=== PATIENT | female | born 1940 | race Caucasian/White ===

== ENCOUNTER 2016-07-27 18:36 | Inpatient (IN) | payer OTHER ==
--- NOTE | ~2016-07-27 | CR72 ---
[facility] A Service of [facility] & [facility] RADIOLOGY TEXT RESULTS PATIENT: LENKA HERNÁNDEZ LOCATION: [place] [address] : 42 UNIT #: [id number] AGE: [address]: Graciela Mehta MD SEX: F ORDER DR: [id number] [facility] [address] [facility]. [place], [place] [address] [id number] I MR#: [id number] Acc #: [id number] NAME: LENKA HERNÁNDEZ : 1940 SEX: F STUDY DATE/TIME: 07/27/2016 19:27 UNIT: [facility] ROOM: [facility] STUDY DESCRIPTION: CR Chest Single View Portable Attending Physician: Weston Mabry M.D. Ordering Physician: Ed Doctor [id number] [facility] Primary Care Physician: Octavio Cedeño M.D. MEDICAL IMAGING REPORT This report is preliminary unless electronic signature is present EXAM Portable chest HISTORY Shortness of air. Cough and fever for 1 month. FINDINGS There is dense consolidation or atelectasis in the retrocardiac left lower lobe. There is a small left pleural effusion. Cardiac size and pulmonary vascularity are within normal limits. Mild hyperinflation of both lungs. Dictated by... Curt Kerr M.D. THIS IS AN ELECTRONICALLY VERIFIED REPORT Curt Kerr M.D. at 08/03/2016 2:02 PM DFL/rnr TD: 07/28/2016 00:37 JOB #: [id number] MEDICAL IMAGING REPORT Page 1 of 1 COPY
--- NOTE | ~2016-07-27 | CO ---
Unit #: [id number] #: [id number] Patient: LENKA HERNÁNDEZ [id number] [address] [place], [place] [address] [id number] I MR#: [id number] NAME: LENKA HERNÁNDEZ [place] Age: 76 Sex: F Admission Date: 07/27/2016 : 1940 Attending Physician: Weston Mabry M.D. Primary Care Physician: Octavio Cedeño M.D. Consultation Date: 07/28/2016 CONSULTATION REPORT HISTORY OF PRESENT ILLNESS Ms. Hernández is a 76-year-old female, who is on the fifth floor and was noted to have fever, tachycardia, hypoxia, and worsening leukocytosis. She was admitted to the hospital yesterday after a recent hospitalization at [facility], where she was discharged on 07/16/2016. At that time, she was admitted to [facility] for upper GI bleed and ended up undergoing exploratory laparotomy with some degree of partial gastrectomy, a distal pancreatectomy, and there is a note that it was found that she had non-Hodgkin lymphoma. She also has an underlying history of cirrhosis, autoimmune hemolytic anemia, diabetes, lupus, and uterine carcinoma. She currently is lethargic and has some probable sepsis-induced delirium and I cannot get any information from the patient, so the history is taken primarily from the chart and the nursing staff. PAST MEDICAL HISTORY Includes cirrhosis of the liver; newly diagnosed non-Hodgkin lymphoma; autoimmune hemolytic anemia; diabetes; hyperlipidemia; lupus; uterine cancer, status post hysterectomy; skin cancer, which was melanoma; upper GI bleed requiring exploratory laparotomy with hemigastrectomy; splenectomy; distal pancreatectomy; incisional hernia repair. PAST SURGICAL HISTORY She has had a right knee arthroplasty, hysterectomy, hernia repair, liver biopsy. ALLERGIES She has no documented allergies to medication. CURRENT MEDICATIONS Include melatonin, fenofibrate, MiraLAX, Nebs, Levemir, ProAmatine, NovoLog, Robitussin, Zofran, vancomycin, Zosyn, hydrocodone, bacitracin ointment, milk of magnesia, metronidazole. FAMILY HISTORY Unobtainable. SOCIAL HISTORY Long-term smoker. Denies use of alcohol. There was no family at the bedside. PHYSICAL EXAMINATION GENERAL: The patient is in her hospital room. She is lethargic and unable to give any useful information. VITAL SIGNS: Temperature is 99, pulse 133, respirations 24 and shallow, Unit #: [id number] #: [id number] Patient: LENKA HERNÁNDEZ blood pressure 160/61. HEENT: Unremarkable. CARDIAC: Tachy, but regular. LUNGS: Clear anteriorly, but shallow. ABDOMEN: She has a PEG in left upper quadrant. The stoma site looks good, but there was some mucus drainage. She has a midline wound that is intact with excellent granulation tissue. No evidence of any infection or breakdown. The fascia is intact. There is some teniae colonization around the wound on the skin. In the left upper quadrant, there is a Luca drain system that is passive into an ostomy bag with no significant drainage at this time. EXTREMITIES: Trace edema. DIAGNOSTIC STUDIES LABORATORY RESULTS: Sodium 124, potassium 3.3, chloride 88, CO2 of 24, BUN 29, creatinine 2.2, glucose 147, calcium 7.8, total bilirubin 1.0, lactic acid 1.2 and 1.0. Hemoglobin 9.8, white count 28,200, platelets 278,000. Differential is pending. ASSESSMENT PLAN A 76-year-old female as described with her change in mental status, tachycardia, hypoxia, and tachypnea with rising leukocytosis. I plan on doing a CT scan to rule out an intraabdominal abscess, leak, or phlegmon. She will be transferred to the ICU under the care of the program coordinator and we will continue to follow her there. CT scan with oral contrast has been ordered. Wound care has been ordered. We will request the recent surgical records and pathology report from [facility]. Dictated by... Romario Sommer M.D. EVITA/christine TD: 07/28/2016 23:25 JOB #: [id number] CONSULTATION REPORT Page 1 of 1 X Romario Sommer MD CONSULTATION REPORT
--- NOTE | ~2016-07-27 | CT55 ---
[facility] A Service of [facility] & [facility] RADIOLOGY TEXT RESULTS PATIENT: LENKA HERNÁNDEZ LOCATION: [address] 302-01 : 42 UNIT #: [id number] AGE: [address]: Graciela Mehta MD SEX: F ORDER DR: [id number] [facility] [address] [place], [place] [address] [id number] I MR#: [id number] Acc #: [id number] NAME: LENKA HERNÁNDEZ : 1940 SEX: F STUDY DATE/TIME: 08/01/2016 13:30 UNIT: [facility] ROOM: [facility] STUDY DESCRIPTION: CT Chest W Con Attending Physician: Graciela Mehta M.D. Ordering Physician: Calin Conner M.D. Primary Care Physician: Octavio Cedeño M.D. MEDICAL IMAGING REPORT This report is preliminary unless electronic signature is present EXAM CT chest with contrast 08/01/2016 1330 hours HISTORY 76-year-old woman with shortness of air and chest pain since 07/27/2016. History of bacteremia of unknown source. Recent abdominal surgery with drain in left upper quadrant. COMPARISON Chest CT 05/02/[address] abdomen and pelvis 07/28/2016. TECHNIQUE Dynamic helical CT images were obtained from the thoracic inlet through the adrenal glands. Sagittal and coronal reconstructions were performed. Contrast was Isovue-370 100 mL IV. Total exam DLP for the chest, abdomen and pelvis study today is 2397 mGy-cm. This CT examination was performed with one or more of the following radiation dose reduction techniques: automatic exposure control, adjustment of mA and/or kV according to patient size, and iterative reconstruction. FINDINGS Images through the thoracic inlet demonstrate enlarged heterogeneous right lobe of thyroid unchanged from 2006 consistent with benign goiter. There is a right IJ catheter with tip in the SVC just above the right atrium. There is no pathologic mediastinal, hilar or axillary adenopathy. Benign calcified nodes are stable. Pulmonary arteries and aorta are normal. Cardiac chambers and pericardium are normal. There is a left pleural effusion which is moderate in size slightly greater than the right pleural effusion. This is new from 2006 and slightly increased from CT abdomen 07/28/2016. There is a moderate right pleural effusion which is new from 05/02/2006 and new from 07/28/2006. [facility]. [facility] A Service of [facility] & [facility] RADIOLOGY TEXT RESULTS PATIENT: LENKA HERNÁNDEZ LOCATION: [facility] 302- : 42 UNIT #: [id number] AGE: [address]: Graciela Mehta MD SEX: F ORDER DR: There is mild underlying emphysematous change. There is ground-glass change in the right middle lobe likely atelectasis. There is dependent atelectasis at both lung bases adjacent to the pleural effusions unchanged on the left but new on the right. Please see report of CT abdomen and pelvis for findings below the hemidiaphragms. IMPRESSION 1. There is no adenopathy in the chest. 2. There is a moderately large left pleural effusion slightly increased from 07/28/2016 CT abdomen but new since chest CT 2006. 3. There is a moderate right pleural effusion which is new from 07/28/2016. There is bibasilar atelectasis but no definite evidence of pneumonia, edema or pulmonary nodule. 4. Please see CT abdomen report for findings below the hemidiaphragms. Dictated by... Laura Jay M.D. THIS IS AN ELECTRONICALLY VERIFIED REPORT Laura Jay M.D. at 08/02/2016 9:30 AM GABRIELA/ken TD: 08/01/2016 14:16 JOB #: [id number] MEDICAL IMAGING REPORT Page 1 of 1 COPY
--- NOTE | ~2016-07-27 | FU ---
[facility] Nutrition Therapy DATE: 08/07/16 Patient: LENKA HERNÁNDEZ Physician: JOHN Address: [address] [facility] Room/Bed: [address] [place] [address], Zip: [place] [id number] Admit Date: 07/27/16 Date of : 42 Height: 5 4 Weight: 229 104 NUTRITION MONITORING/FOLLOW-UP: Reason: Nutrition follow-up Admitting Dx: 76 y/o female admitted with PNA, fever Anthropometrics: Ht: 64", admission wt: 94.5 kg, current wt: 104 kg, BMI: 35.8 (Stage II obese; based on admission wt) Labs: Glucose 117, POC 119 (08/06), Creat 2.6, Phos 6.1 (08/06), GFR 17.5, Na/K WNL Meds: Reviewed GI: Last BM 08/06, PEG site abdomen Skin: No nutritionally significant issues, 2+ edema BLE Estimated Nutrition Needs: 3621-0175 kcals per day (20-25 kcals/kg admission wt) 113-142 g protein per day (1.2-1.5 g/kg admission wt) Fluids consistent with kcal needs or per MD Assessment: Chart reviewed, events noted. Patient is on 3L nasal cannula. Still with poor PO intake, currently on MS/NDD2/CC diet with chocolate Glucerna TID and sugar-free vanilla magic cup ordered BID. Patient ate none of her lunch today, only ~75% of her Glucerna shake, magic cup remains on tray untouched. Appetite remains inconsistent/poor, severe protein calorie malnutrition previously diagnosed by RD. She has been in and out of the ICU due to respiratory distress. Suggest utilizing PEG tube for nocturnal enteral feedings to meet nutritional needs. Glucose well controlled at this time, suggest to D/C CC restriction on diet order and continue ONS as desired. See nutritional goals, dx and recs as stated below. Has been accepted @ [facility], pending available bed. Will continue to follow. Dx: Severe protein calorie malnutrition r/t clinical condition, abdominal surgeries AEB prolonged poor oral intake and weight loss > 5% body weight in 1-2 months - ACTIVE Intervention: D/C CC restriction, suggesting nocturnal EN Monitoring, Evaluation and Goals: 1. PO intake > 50% of meals - NOT MET 2. ONS intake > 50% TID - IN PROGRESS 3. GI function WNL - IN PROGRESS 4. Labs WNL - IN PROGRESS (Creat and Phos elevated) [facility] Nutrition Therapy DATE: 08/07/16 Patient: LENKA HERNÁNDEZ Physician: JOHN Address: [address] [place] [address] Room/Bed: [address] [place] [address], Zip: [place] [address] Admit Date: 07/27/16 Date of : 42 Height: 5 4 Weight: 229 104 5. Skin WNL - MET Revised nutritional goals: 1. PO intake to meet ~50% of meals. 2. EN to meet 50% estimated nutrition needs. Monitor: Per protocol, criteria to determine if above goals met Recommendations: 1. Suggest discontinuing consistent carb restriction due to poor PO intake and well controlled blood glucose to liberalize food choices. Continue with mechanical soft/NDD2 restrictions per [employer]. 2. Continue oral nutrition supplements and encourage adequate intake. 3. Recommend utilizing PEG tube to help meet nutritional needs. Suggest running nocturnal feedings with Jevity 1.5 @ 60 ml x 12 hours (8p-8a) + 30 ml Prostat daily to meet approx. 50% of estimated nutrition needs (will provide 1180 kcals, 61 g protein and 547 ml water. 4. Please consult or call RD with further nutritional needs @ [phone]. Status: Mild-moderate nutrition risk Respectfully, Elvie Patrick, RD, LD Food and Nutritional Services [facility] cc: client file
--- NOTE | ~2016-07-27 | CT71 ---
[facility] A Service [facility] RADIOLOGY TEXT RESULTS PATIENT: LENKA HERNÁNDEZ LOCATION: [facility] 322-01 : 42 UNIT #: [id number] AGE: [address]: Graciela Mehta MD SEX: F ORDER DR: [id number] [place] [id number] [facility]. [place], [place] [address] [id number] I MR#: [id number] Acc #: [id number] NAME: LENKA HERNÁNDEZ : 1940 SEX: F STUDY DATE/TIME: 08/06/2016 12:13 UNIT: [address] ROOM: [facility] STUDY DESCRIPTION: CT Head Wo Contrast Attending Physician: Graciela Mehta M.D. Ordering Physician: Graciela Mehta M.D. Primary Care Physician: Octavio Cedeño M.D. MEDICAL IMAGING REPORT This report is preliminary unless electronic signature is present EXAM CT brain without contrast media 08/06/2016 HISTORY SUPPLIED Lethargy, new onset today, recent diagnosis of non Hodgkin lymphoma. TECHNIQUE Axial imaging of the brain was performed without contrast media. This CT exam was performed with one or more of the following radiation dose reduction techniques: automatic exposure control, adjustment of mA and/or kV according to patient size, and iterative reconstruction. FINDINGS There is generalized prominence of the ventricles and CSF containing spaces with degreased attenuation in the periventricular regions, primarily in the frontal regions. There are small vessel ischemic changes in the basal ganglia. No mass lesions, mass effect, acute hemorrhage or edema. No intra or extraaxial fluid collections are identified. Bone windows are reviewed. The patient has advanced erosive changes at the dens. The bone elements appear otherwise unremarkable. CONCLUSION 1. Atrophy. 2. Mild chronic small vessel deep white matter ischemic changes, primarily in the frontal regions. 3. Advanced arthritic changes at the C1-2 level. 4. No acute findings. Dictated by... Fernando Monet M.D. [facility] A Service [facility] RADIOLOGY TEXT RESULTS PATIENT: LENKA HERNÁNDEZ LOCATION: [facility] 322-01 : 42 UNIT #: [id number] AGE: [address]: Graciela Mehta MD SEX: F ORDER DR: THIS IS AN ELECTRONICALLY VERIFIED REPORT Fernando Monet M.D. at 08/07/2016 5:06 PM KELLY/romina TD: 08/06/2016 16:29 JOB #: [id number] MEDICAL IMAGING REPORT Page 1 of 1 COPY
--- NOTE | ~2016-07-27 | CR72 ---
[facility] A Service of [facility] & [facility] RADIOLOGY TEXT RESULTS PATIENT: LENKA HERNÁNDEZ LOCATION: [address] : 42 UNIT #: [id number] AGE: [address]: Weston Mabry MD SEX: F ORDER DR: [id number] [facility] [address] [facility]. [place], [place] [address] [id number] I MR#: [id number] Acc #: [id number] NAME: LENKA HERNÁNDEZ : 1940 SEX: F STUDY DATE/TIME: 07/28/2016 12:18 UNIT: [facility] ROOM: [facility] STUDY DESCRIPTION: CR Chest Single View Portable Attending Physician: Weston Mabry M.D. Ordering Physician: Ed Bubba Estrella M.D. Primary Care Physician: Octavio Cedeño M.D. MEDICAL IMAGING REPORT This report is preliminary unless electronic signature is present EXAM Portable chest INDICATIONS Central line placement. Comparison with yesterday. FINDINGS There is a new right IJ approach central venous catheter with tip projecting over the mid-SVC. No pneumothorax. There is persistent bibasilar atelectasis or infiltrate. IMPRESSION Right IJ central venous catheter tip projects over the mid SVC. No evidence for pneumothorax. Dictated by... Lacho Warren M.D. THIS IS AN ELECTRONICALLY VERIFIED REPORT Lacho Warren M.D. at 07/29/2016 3:48 PM ARS/rnr TD: 07/28/2016 23:17 JOB #: [id number] MEDICAL IMAGING REPORT Page 1 of 1 COPY
--- NOTE | ~2016-07-27 | FU ---
[facility] Nutrition Therapy DATE: 08/03/16 Patient: LENKA WONGSHANNA Physician: JOHN Address: [address] [facility] Room/Bed: [address], Zip: [place] [address] Admit Date: 07/27/16 Date of : 42 Height: 5 4 Weight: 232 105.5 NUTRITION MONITORING/FOLLOW-UP: Reason: PT SEEN FOR FOLLOW-UP DX: PNA, HYPONATREMIA, FEVER Anthropometrics: 5'4", WT: 232# (105 KG), BMI: 39.8 -ADMIT WEIGHT: 207# Labs: GLU: 127, CREAT: 1.7, CA+: 8.0, ALB: 2.2, AST: 75, M.1, GFR: 29.2 Meds: NACL, KCL, LEVEMIR, NOVOLOG, ZOFRAN I&O's: 1387/1610 Skin: ISSUES PREVIOUSLY NOTED Estimated Nutrition Needs: [phone] KCAL 113-142 G PRO Assessment: CHART REVIEWED AND EVENTS NOTED. PT SEEN FOR FOLLOW-UP. PT CURRENTLY NPO 2' RESPIRATORY DISTRESS NOTED LAST NIGHT. PLANS IN PLACE TO RESUME PREVIOUS DIET OF MECHANICAL SOFT + CC + NDD2. RD SPOKE TO PT. PT REPORTS "WANTING TO EAT". THIS RD ENCOURAGED SLOW GRADUAL PO INTAKE + SUPPLEMENT INTAKE, PT REQUESTS TO CONTINUE TO RECEIVING SUPPLEMENTS ORDERED BY PREVIOUS RD ON 07/28. (LC GLUCERNA TID + SUGAR-FREE MAGIC CUP BID). PT REPORTED NO DIET QUESTIONS AT THIS TIME. RD TO CONTINUE TO FOLLOW HOSPITAL COURSE. Dx: SEVERE PROTEIN CALORIE MALNUTRITION R/T CLINICAL CONDITION, ABDOMINAL SURGERIES AEB PROLONGED POOR ORAL INTAKE AND >5% WEIGHT LOSS NOTED IN 1-2 MONTHS.-ACTIVE Intervention: 1. PREVIOUS DIET RESUMED 2. LC GLUCERNA TID + SUGAR-FREE MAGIC CUP BID Monitoring, Evaluation and Goals: 1. PO INTAKE >50% OF MEALS-NOT MET 2. ONS INTAKE >50% TID-NOT MET 3. GI INTOLERANCE-IN PROGRESS 4. IMPROVEMENT IN LABS-IN PROGRESS 5. MAINTAIN WEIGHT STATUS/PRESERVE LBM-IN PROGRESS 6. PROMOTE WOUND HEALING-IN PROGRESS MONITOR: -PO INTAKE/APPETITE [facility] Nutrition Therapy DATE: 08/03/16 Patient: LENKA HERNÁNDEZ Physician: JOHN Address: [address] [facility] Room/Bed: [address], Zip: [place] [address] Admit Date: 07/27/16 Date of : 42 Height: 5 4 Weight: 232 105.5 -WEIGHTS -SUPPLEMENT INTAKE Recommendations: 1. ONCE MEDICALLY FEASIBLE, ADVANCE DIET BACK TO PREVIOUS DIET OF MECHANICAL SOFT + NDD2 + CC DIET 2. CONTINUE SUPPLEMENTS ORDERED ABOVE 3. APPRECIATE FAMILY AND STAFF TO ENCOURAGE PO AND SUPPLEMENT, ASSIST W/ORDERING MEALS TOLERATED 4. CONTINUE MVI W/MINERALS 5. CONTINUE TO WEIGH PT q 3 DAYS FOR MONITORING PURPOSES RD WILL F/U PER PROTOCOL PT IS MODERATELY COMPROMISED Respectfully, CRIS HARDIN MS, RD, LD Food and Nutritional Services [facility] cc: client file
--- NOTE | ~2016-07-27 | CO ---
Unit #: [id number] #: [id number] Patient: LENKA HERNÁNDEZ [id number] [facility]. [place], [place] [address] [id number] I MR#: [id number] NAME: LENKA HERNÁNDEZ ROOM: [facility] Age: 76 Sex: F Admission Date: 07/27/2016 : 1940 Attending Physician: Weston Mabry M.D. Primary Care Physician: Octavio Cedeño M.D. Consultation Date: 07/30/2016 CONSULTATION REPORT REASON FOR CONSULTATION Pseudomonas sepsis. HISTORY OF PRESENT ILLNESS This is a 76-year-old female who has a complex recent medical history, as well as past medical history. The patient is awake but appears to be somewhat of a poor historian, and chart has been reviewed and was also discussed with the staff. The patient had a recent long hospitalization at [facility], approximately 1 month, secondary to hematemesis status post extensive O.R., including partial gastrectomy, distal pancreatectomy and evacuation of developing phlegmon. Patient's pathology was also consistent with non-Hodgkin lymphoma. Patient had some complicated course, including pneumonia and urinary tract infection, but eventually was discharged to a rehab facility. Patient now returns to [facility] from the rehab facility with fever, tachycardia, hypoxia and worsening leukocytosis. Patient's workup did include gram-negative rods in her urine, as well as 2 of 2 positive blood cultures for Pseudomonas, resistant to multiple antibiotics. ID was asked to evaluate for further antibiotic management. Please note the patient also had some acute kidney insufficiency on admission. She still has a relatively elevated creatinine level, and she also recently had a CT scan done that did not show any abscess; however, this was done without contrast. The patient has recently been switched this a.m. to meropenem. PAST MEDICAL HISTORY 1. Cirrhosis of the liver. 2. Newly diagnosed non-Hodgkin lymphoma. 3. Autoimmune hemolytic anemia. 4. Diabetes. 5. Hyperlipidemia. 6. Lupus. 7. Uterine cancer. 8. Hysterectomy. 9. Skin cancer, melanoma. 10. Upper GI bleed status post extensive exploratory laparotomy with partial gastrectomy, splenectomy, distal pancreatectomy and incisional hernia repair and evacuation of phlegmon. PAST SURGICAL HISTORY As previously stated above. Also, including right knee arthroplasty, hysterectomy, hernia repair and liver biopsy. ALLERGIES No known allergies; however, the patient appears to have said that she was Unit #: [id number] #: [id number] Patient: LENKA HERNÁNDEZ allergic to sulfa to me during my exam. CURRENT MEDICATIONS The patient is currently on meropenem. For other medications, please refer to the patient's MAR. She is also noted to be on a Levophed drip. SOCIAL HISTORY The patient does have past tobacco abuse. No alcohol abuse. REVIEW OF SYSTEMS Difficult to obtain, as the patient's voice appears rather hoarse and have asked her to repeatedly repeat her history. Patient does report that she did have some fever and chills that are ongoing. She denies any shortness of breath. She denies any nausea, vomiting. She does have diarrhea. She denies any abdominal pain. She denies any metal or hardware besides in her total knee arthroplasty on the right side without pain. She does report arthritis in the left knee. PHYSICAL EXAMINATION VITAL SIGNS: Temperature 97.6 with a T max this admission of 100.1. Pulse is 87, blood pressure is 96/64, and respiratory rate is 30. GENERAL: This is a weak and hoarse-sounding female. HEENT: Her pupils are sluggish. NECK: Her neck is supple. CARDIOVASCULAR: S1, S2. Regular rate and rhythm. PULMONARY: Diminished in the bases with no significant wheezes or rhonchi noted. ABDOMEN: Decreased bowel sounds. She does have an abdominal incision that has some packing with no surrounding cellulitis around the incision. She appears to have a left upper quadrant [place] drain that has some purulent drainage. She has a G-tube with some drainage around the G-tube site with no evidence of cellulitis. She has a fecal management system in place without any rust colored appearing stool. It does appear brown. She has trace edema. She has an IJ line in place. DIAGNOSTIC STUDIES LABS: Hemoglobin 9, hematocrit 31, WBC 22,000 (which is improved from 28,000), and platelets 337. Sodium 130, potassium 3.7, chloride 99, CO2 22, BUN 17, creatinine 1.1 (which is improved from 2.2), bilirubin 1.2, AST 22, ALT 9. Lactic acid was 1. Urinalysis shows innumerable WBCs. July 30 blood culture is pending. C. diff. is negative. July 28 respiratory culture is negative. July 27 blood culture shows Pseudomonas. Intermediate to cefepime and resistant to Levaquin and gentamicin. Urine culture shows gram-negative rods. IMAGING: CT scan. Please see full report for complete details. In summary - Patient has mild left periaortic adenopathy measuring up to 1.6 cm, questionably related to lymphoma. No adenopathy is identified in the remainder of the abdomen and pelvis. Yvre-kx-ynzyjosx stranding in the celiac axis and the remaining pancreas and upper abdominal mesenteric fat. Partial gastrectomy, splenectomy and resection of the pancreatic tail. Cholecystectomy and hysterectomy. Changes of cirrhosis. Mild bilateral hydronephrosis but no obstructing renal calculi. Small left pleural effusion with extensive atelectasis in left lower lobe, as well as the right lower lobe. IMPRESSION This is a 76-year-old female who was at a rehab facility after extensive Unit #: [id number] #: [id number] Patient: EDGARJOSETTEZOE stay at [facility] after an extensive exploratory laparotomy requiring gastrectomy, splenectomy and evacuation of left upper quadrant phlegmon. Patient was also diagnosed with non-Hodgkin lymphoma. Patient now returns with sepsis presentation, including low-grade fever, leukocytosis and acute renal failure. Found to have Pseudomonas sepsis. At this time, possibilities include abdominal source. Patient's CT scan does not show any clear abscess; however, this was done without contrast secondary to the patient's elevated creatinine. Patient does appear to have some purulent fluid coming from her Luca drain in her left upper quadrant; however, culturing this could yield some surface contamination. Other sources include urine, as the patient does appear to have a UTI and gram-negative rods in the urine culture. Patient did have mild stranding of the bilateral ureters on the CT scan, as well, but no obstruction was noted. Patient also has continued leukocytosis. Part of this is likely related to patient's recent splenectomy; however, do suspect that it is elevated due to her ongoing sepsis. At this time would like to continue meropenem. Patient will require a second agent due to Pseudomonas being detected in the bloodstream. Due to patient's sensitivities noted on the blood cultures, would like to add colistin, and I have discussed with microbiology to check sensitivities of both meropenem and colistin. Patient will likely or possibly develop some worsening acute renal insufficiency due to the use of colistin; however, with limited sensitivities on the Pseudomonas, this will be difficult. This was discussed with Dr. Calin Conner prior to adding colistin to patient's regimen. Will continue to follow the ID of the gram-negative rods in the urine, as well as repeat blood cultures. Will check a CBC and CMP in the a.m. Patient, if continues to have bacteremia, may require repeat CT scan with contrast if she is able to tolerate it with her kidney function. Thank you for allowing us to participate in the care of this patient. Further recommendations to follow pending the patient's clinical course. Please note that I have discussed with microbiology at [facility], and there was no Pseudomonas detected during her length of stay during that hospitalization. Dictated by... Antonette Gilliam/john TD: 07/30/2016 11:47 JOB #: [id number] CONSULTATION REPORT Page 1 of 1 X X CONSULTATION REPORT
--- NOTE | ~2016-07-27 | CT2 ---
[facility] A Service of [facility] & [facility] RADIOLOGY TEXT RESULTS PATIENT: LENKA HERNÁNDEZ LOCATION: A 302-01 : 42 UNIT #: [id number] AGE: [address]: Graciela Mehta MD SEX: F ORDER DR: [id number] [facility] [address] [place], [place] [address] [id number] I MR#: [id number] Acc #: [id number] NAME: LENKA HERNÁNDEZ : 1940 SEX: F STUDY DATE/TIME: 08/01/2016 13:30 UNIT: [facility] ROOM: [facility] STUDY DESCRIPTION: CT Abd and Pelv W Cont Attending Physician: Graciela Mehta M.D. Ordering Physician: Calin Conner M.D. Primary Care Physician: Octavio Cedeño M.D. MEDICAL IMAGING REPORT This report is preliminary unless electronic signature is present EXAM CT abdomen pelvis with contrast, 08/01/2016 13:30 hours HISTORY 76-year-old woman with pneumonia, bacteremia of unknown source. Recent abdominal surgery with left upper quadrant drain. Patient complains of abdominal pain, chest pain and shortness of air since 07/27/2016. COMPARISON CT abdomen, 07/28/[address] images were obtained from the lung bases through the pubic symphysis with oral and intravenous contrast. Isovue-370 100 mL IV. Total exam DLP for the chest, abdomen and pelvis study is 2,397 mGy-cm. This CT exam was performed with one or more of the following radiation dose reduction techniques: automatic exposure control, adjustment of mA and/or kV according to patient size, and iterative reconstruction. FINDINGS There are bilateral moderate-sized pleural effusions slightly increased on the left and new on the right compared to 07/28/2016. There is bibasilar atelectasis. Images through the abdomen demonstrate a homogeneously enhancing liver with cirrhotic morphology, unchanged. There is a gastrostomy tube in the stomach which is well apposed to the anterior abdominal wall and unchanged. There is postop change of partial gastrectomy and distal pancreatectomy and splenectomy. There is fluid in the left upper quadrant without definite abscess or enhancement. There is mild linear stranding around the tail of the pancreas similar to prior exam. The head and body [facility]. [facility] A Service of [facility] RADIOLOGY TEXT RESULTS PATIENT: LENKA HERNÁNDEZ LOCATION: C3A 302-01 : 42 UNIT #: [id number] AGE: [address]: Graciela Mehta MD SEX: F ORDER DR: of the pancreas and the common bile duct are normal. There are small periaortic lymph nodes again demonstrated felt unchanged but better visualized on this exam due to the presence of IV contrast on this exam. Example node measures 1.8 x 1.5 cm along the left anterior margin of the upper abdominal aorta on image 36. There is no renal lesion. No right adrenal lesion. The left adrenal is difficult to assess and may be surgically absent. The stomach is unopacified but fluid-filled. No gastric wall thickening is seen. There is no wall thickening seen in the small bowel. There is no distension. Contrast passes into the colon. No colonic wall thickening is seen. CT pelvis demonstrates a Rowley catheter in the bladder. There is no mass or fluid collection. No abscess. There is edema in the flanks left and right and dependently over the buttocks suggesting an element of anasarca increased from 07/28/2016. IMPRESSION 1. Increase in size of left pleural effusion with new moderate pleural effusion. There is bibasilar atelectasis. Findings are compared to recent CT abdomen 07/28/2016. 2. Postoperative changes in the left upper quadrant with partial gastrectomy, distal pancreatectomy and splenectomy. There is linear stranding adjacent to the tail of the pancreas without definite fluid collection or nodule. 3. There is stable small retroperitoneal lymph nodes around the aorta at the level of the renal artery and inferior to the renal arteries similar in size to 07/28/2016. These are increased from 2007. They are better visualized on today's study due to the presence of IV contrast on this exam. 4. Cirrhotic morphology to the liver with no focal liver lesion. The right adrenal gland is normal. I cannot discriminate a left adrenal gland. 5. No renal or ureteral calculi. 6. The stomach, small bowel and colon appear normal. There is an ostomy in the left lower quadrant. 7. There is a partially open midline surgical wound with no evidence of dehiscence or ventral hernia. Dictated by... Laura Jay M.D. THIS IS AN ELECTRONICALLY VERIFIED REPORT Laura Jay M.D. at 08/02/2016 9:30 AM GABRIELA/belkis TD: 08/01/2016 14:20 JOB #: [id number] [facility] A Service of [facility] RADIOLOGY TEXT RESULTS PATIENT: LENKA HERNÁNDEZ LOCATION: A 302-01 : 42 UNIT #: [id number] AGE: [address]: Graciela Mehta MD SEX: F ORDER DR: MEDICAL IMAGING REPORT Page 1 of 1 COPY
--- NOTE | ~2016-07-27 | CR72 ---
[facility] A Service of [facility] & [facility] RADIOLOGY TEXT RESULTS PATIENT: LENKA HERNÁNDEZ LOCATION: [address] : 42 UNIT #: [id number] AGE: [address]: Weston Mabry MD SEX: F ORDER DR: [id number] [facility] [address] [place], [place] [address] [id number] I MR#: [id number] Acc #: [id number] NAME: LENKA HERNÁNDEZ : 1940 SEX: F STUDY DATE/TIME: 07/30/2016318 UNIT: [facility] ROOM: [facility] STUDY DESCRIPTION: CR Chest Single View Portable Attending Physician: Weston Mabry M.D. Ordering Physician: Felice Barlow M.D. Primary Care Physician: Octavio Cedeño M.D. MEDICAL IMAGING REPORT This report is preliminary unless electronic signature is present EXAM Portable chest, 07/30 at 0319. INDICATION Shortness of air, cough, congestion, and fever for 3 days. FINDINGS AP portable chest compared with 07/28/2016. IJ line in the SVC. Heart size stable. There is increasing infiltrate left jiz-xq-ukuag lung and there is enlarging left effusion. There is also increased infiltrate at the right base. Findings are worrisome for pneumonia. No pneumothorax. Dictated by... Romario Ortega Jr., M.D. THIS IS AN ELECTRONICALLY VERIFIED REPORT Romario Ortega Jr., M.D. at 07/30/2016 5:19 PM IMAN/delonte TD: 07/30/2016 10:51 JOB #: [id number] MEDICAL IMAGING REPORT Page 1 of 1 COPY
--- NOTE | ~2016-07-27 | CR72 ---
[facility] A Service of [facility] & [facility] RADIOLOGY TEXT RESULTS PATIENT: LENKA HERNÁNDEZ LOCATION: [facility] 322-01 : 42 UNIT #: [id number] AGE: [address]: Graciela Mehta MD SEX: F ORDER DR: [id number] [facility] [address] [place], [place] [address] [id number] I MR#: [id number] Acc #: [id number] NAME: LENKA HERNÁNDEZ : 1940 SEX: F STUDY DATE/TIME: 08/05/2016 5:16 UNIT: [facility] ROOM: [facility] STUDY DESCRIPTION: CR Chest Single View Portable Attending Physician: Graciela Mehta M.D. Ordering Physician: Felice Barlow M.D. Primary Care Physician: Octavio Cedeño M.D. MEDICAL IMAGING REPORT This report is preliminary unless electronic signature is present EXAM Portable chest, 08/05/2016. HISTORY Fever and shortness of breath for 9 days. COMPARISON Chest, 08/04/2016. FINDINGS Frontal chest demonstrates a right IJ central venous catheter in stable position. No pneumothorax. No change in bibasilar atelectasis/infiltrate and small bilateral pleural effusions. Heart size and mediastinum are stable. IMPRESSION No significant change in small bilateral pleural effusions and bibasilar atelectasis/infiltrate. Dictated by... Minesh Clinton M.D. THIS IS AN ELECTRONICALLY VERIFIED REPORT Minesh Clinton M.D. at 08/06/2016 8:52 AM SARITHA/delonte TD: 08/05/2016 07:27 JOB #: [id number] MEDICAL IMAGING REPORT Page 1 of 1 COPY
--- NOTE | ~2016-07-27 | CR72 ---
[facility] A Service of [facility] & [facility] RADIOLOGY TEXT RESULTS PATIENT: LENKA HERNÁNDEZ LOCATION: [facility] 302- : 42 UNIT #: [id number] AGE: [address]: Graciela Mehta MD SEX: F ORDER DR: [id number] [facility] [address] [place], [place] [address] [id number] I MR#: [id number] Acc #: [id number] NAME: LENKA HERNÁNDEZ : 1940 SEX: F STUDY DATE/TIME: 08/02/2016 16:26 UNIT: [address] ROOM: [facility] STUDY DESCRIPTION: CR Chest Single View Portable Attending Physician: Graciela Mehta M.D. Ordering Physician: Graciela Mehta M.D. Primary Care Physician: Octavio Cedeño M.D. MEDICAL IMAGING REPORT This report is preliminary unless electronic signature is present EXAM Single view chest 08/02/2016 INDICATION Hypoxia and pneumonia. FINDINGS Single portable AP view of the chest compared to 07/30/[address] chest dated 07/30/2016. Right IJ central line terminates over the SVC. The heart and mediastinal contours are unchanged. Moderate interstitial edema and bilateral pleural effusions are similar to the CT scan. No pneumothorax. IMPRESSION No interval change. Dictated by... Zen Alba M.D. THIS IS AN ELECTRONICALLY VERIFIED REPORT Zen Alba M.D. at 08/02/2016 5:55 PM GRICELDA/romina TD: 08/02/2016 17:47 JOB #: [id number] MEDICAL IMAGING REPORT Page 1 of 1 COPY
--- NOTE | ~2016-07-27 | EKG ---
PATIENT: LENKA HERNÁNDEZ UNIT #: [id number] Ventricular Rate: 134 BPM Atrial Rate: 111 BPM QRS Duration: 82 ms Q-T Interval: 366 ms QTC Calculation(Bezet): 546 ms Calculated R Belcher: 36 degrees Calculated T Belcher: 37 degrees Diagnosis Line: Atrial fibrillation with rapid ventricular Diagnosis Line: response Diagnosis Line: Low voltage QRS Diagnosis Line: Nonspecific T wave abnormality , probably Diagnosis Line: digitalis effect Diagnosis Line: Abnormal ECG Diagnosis Line: No previous ECGs available Diagnosis Line: Confirmed by SANDI DEL ANGEL MD ([id number]) on 07/30/2016 Diagnosis Line: 5:44:09 AM INTERPRETING MD: MER FOOTE
--- NOTE | ~2016-07-27 | A ---
[facility] Therapy DATE: 07/28/16 Patient: LENKA HERNÁNDEZ Physician: JOHN Address: [address] Room/Bed: [address], Zip: [place] [address] Admit Date: 07/27/16 Date of : 42 Height: 5 4 Weight: 208 94.5 NUTRITIONAL ASSESSMENT: REASON: 2 points nutrition screen risk RE: wound and eating poorly 76 yo female admitted for PNA, fever PMH: Non-hodgkins lymphoma, DM, cirrhosis, lupus, dyslipidemia, uterine cancer s/p hysterectomy, skin cancer with previous excision, autoimmune hemolytic anemia, s/p (recent) exploratory laparatomy with: vertical leonardo-gastrectomy, slenectomy, distal pancreectomy, hernia repair Anthropometrics: Ht: 64" Adm wt: 94.5 kg BMI: 35.8 Labs: Na+ 124 K+ 3.3 Cl- 88 Gluc 147 BUN 29 Creat 2.2 Ca++ 7.8 Alb 2.4 Accuchecks 141-191 GFR 21.4 Alk phos 111 Meds: D5%. levophed, miralax, levemir, novolog, zofran, MOM, KCl, therapeutic formula I/O & Bowel function: 780/2, last BM 07/28, ostomy, diarrhea noted Skin Integrity: Redness to coccyx Open surgical incision to abdomen Excoriation to skin folds G Tube insertion site (infected) Edema: LLE/ foot/ ankle 2+/pitting RLE/ foot/ ankle- trace Body- generalized Estimated Nutrition Needs: Increased due to recent surgery, open surgical incision, PMH 0325-3339 kcals (20-25 kcals/kg ABW) 113-142 grams protein (1.2-1.5 grams/kg ABW) Diet: NPO Assessment: Chart reviewed, events noted. 76 yo female admitted for PNA, fever, NORA and hyponatremia. Pt was initially admitted to 5th floor, now in ICU. Pt previously had complicated abdominal surgery (with partial pancreectomy and leonardo-gastrectomy) at an outside hospital ([facility]), then transfered to [facility] for rehab. Pt has a PEG, which was placed at her previous hospitalization post-surgery. PEG site noted to be infected. Pt was ordered a consistent carbohydrate diet upon admission here, and is now NPO in ICU. HUMAN RESOURCES DISTRICT MANAGER evaluated the pt, and recommended mechanical soft diet with ground meats, NDD2 and thin [facility] Therapy DATE: 07/28/16 Patient: LENKA HERNÁNDEZ Physician: JOHN Address: [address] Room/Bed: [address], Zip: [place] [address] Admit Date: 07/27/16 Date of : 42 Height: 5 4 Weight: 208 94.5 liquids. Per information in chart, the pt was on a soft diet with thin liquids at [facility], with multiple supplements ordered. RD spoke with the pt and her daughter at bedside, as the pt was in and out of sleep. Pt's daughter reports that the pt's intake was poor with 3-4 bites per meal at [facility]. Pt's daughter does report that the pt's appetite seemed to be improving before transfer to [facility], as the pt would request different foods. Pt would apparently only consume supplements when someone sat with her and encouraged it during meal times. Pt's family reports that the pt has lost ~35# since admission to [facility] on 06/16/16 (14% weight loss over 1.5 months = severe weight loss). Pt's family also reports that the pt was receiving TPN at [facility], which was discontinued. RD explained nutrition options to the family, and explained that diet advancement would be pending surgical team decision. Please see recommendations below. Dx: Severe protein-calorie malnutrition RT clinical condition, abdominal surgery AEB prolonged poor intake prior to admission (<50% estimated energy needs), >5% weight loss in 1.5 months (14% weight loss). Intervention: 1. Advance diet per HUMAN RESOURCES DISTRICT MANAGER/ surgical team 2. EN if appropriate Monitoring, Evaluation and Goals: 1. Oral intake; advance diet as appropriate per HUMAN RESOURCES DISTRICT MANAGER/ surgical team, tolerate PO intake without c/o GI intolerance 2. Improve labs; electrolytes, glucose, BUN, creat, GFR 3. Weight; prevent unintentional weight loss, preserve lean body mass 4. Skin; promote healing Recommendations: 1. As deemed appropriate per surgical team, advance the pt's diet per HUMAN RESOURCES DISTRICT MANAGER recommendations + consistent carbohydrate/ high protein. 2. If pt's diet advanced per HUMAN RESOURCES DISTRICT MANAGER recommendations, please assist the pt with meals and order the following for supplemental nutrition/ wound healing: -Marcelino BID -Chocolate Glucerna TID -Magic Cup (sugar free) BID 3. Continue MVI + minerals to promote wound healing. [facility] DATE: 07/28/16 Patient: LENKA HERNÁNDEZ Physician: JOHN Address: [address] [place] [address] Room/Bed: [address], Zip: [place] [address] Admit Date: 07/27/16 Date of : 42 Height: 5 4 Weight: 208 94.5 4. If the pt's diet is not advanced, or the pt does not consume at least 50% of meals and supplements, consider initiating enteral nutrition for supplemental nutrition if deemed appropriate per surgical team (infected PEG site noted). If enteral nutrition is ordered, recommend: -Initiate Vital 1.5 @ 15 mL/hr + 30 mL Prostat BID. Advance by 10 mL q 12 hrs as tolerated to goal of 55 mL/hr + 30 mL Prostat BID to provide: 2180 kcals/ 119 grams protein/ 1003 mL free H20 PLEASE NOTE: The above regimen will meet 100% of the pt's estimated nutrient needs. If the pt's diet is advanced and intake is poor, supplemental/ nocturnal enteral nutrition may be appropriate. RD will follow closely and make recommendations as appropriate. Pt is at severe nutritional risk. RD will follow hospital course closely. Respectfully, SERAFIN FLORES RD, LD [employer] and Nutrition[facility] Services [facility] cc: client file
--- NOTE | ~2016-07-27 | EKG ---
PATIENT: LENKA HERNÁNDEZ UNIT #: [id number] Ventricular Rate: 73 BPM Atrial Rate: 73 BPM P-R Interval: 150 ms QRS Duration: 80 ms Q-T Interval: 400 ms QTC Calculation(Bezet): 440 ms P Rayle: 28 degrees Calculated R Rayle: 59 degrees Calculated T Rayle: 69 degrees Diagnosis Line: Sinus rhythm with Premature atrial complexes Diagnosis Line: Low voltage QRS Diagnosis Line: Borderline ECG Diagnosis Line: When compared with ECG of 29-JUL-2016 05:23, Diagnosis Line: Sinus rhythm has replaced Atrial fibrillation Diagnosis Line: Vent. rate has decreased BY 61 BPM Diagnosis Line: Confirmed by PHI EISENBERG MD ([id number]) on Diagnosis Line: 08/04/2016 4:32:02 PM INTERPRETING MD: FAINA FOOTE
--- NOTE | ~2016-07-27 | XA203 ---
[facility] A Service of [facility] RADIOLOGY TEXT RESULTS PATIENT: LENKA HERNÁNDEZ [facility] UNIT #: [id number] AGE: [address]: Graciela Mehta MD SEX: F ORDER DR: [id number] [facility] [address] [facility]. [place], [place] [address] [id number] I MR#: [id number] #: [id number] NAME: LENKA HERNÁNDEZ : 1940 SEX: F STUDY DATE/TIME: 07/30/2016 12:49 UNIT: [facility] ROOM: [facility] STUDY DESCRIPTION: XA Thoracentesis Attending Physician: Graciela Mehta M.D. Ordering Physician: Felice Barlow M.D. Primary Care Physician: Octavio Cedeño M.D. MEDICAL IMAGING REPORT This report is preliminary unless electronic signature is present EXAM Ultrasound guided thoracentesis HISTORY Left pleural effusion. PROCEDURE Risks, benefits, and alternatives of the procedure were explained to the patient and signed, informed consent was obtained. She was seated in the upright position and preliminary ultrasound of left hemithorax was performed which demonstrated a large left pleural effusion with images permanently saved. Overlying skin was marked. Patient was prepped and draped in the usual sterile fashion. Timeout was performed as per standard protocol. Skin and subcutaneous tissues were anesthetized with buffered lidocaine. Yueh catheter was advanced in the fluid with aspiration of serous material, catheter was hooked to suction tubing with evacuation of total 900 mL of serous material. Catheter was then removed and manual pressure was applied until hemostasis was obtained. IMPRESSION Technically successful ultrasound guided left thoracentesis with evacuation of 900 mL serous material. Ultrasound was used during the procedure. Permanent images were saved. Dictated by... Dominique Barros M.D. [facility] A Service of [facility] & [facility] RADIOLOGY TEXT RESULTS PATIENT: LENKA HERNÁNDEZ [facility] UNIT #: [id number] AGE: [address]: Graciela Mehta MD SEX: F ORDER DR: THIS IS AN ELECTRONICALLY VERIFIED REPORT Dominique Barros M.D. at 07/31/2016 4:43 PM AFF/dj TD: 07/31/2016 09:42 JOB #: [id number] MEDICAL IMAGING REPORT Page 1 of 1 COPY
--- NOTE | ~2016-07-27 | HP ---
Unit #: [id number] #: [id number] Patient: LENKA HERNÁNDEZ [id number] [place], [place] [address] [id number] E MR#: [id number] NAME: LENKA HERNÁNDEZ ROOM: Age: 76 Sex: F Admission Date: 07/27/2016 : 1940 Attending Physician: Romario Marcelino M.D. Primary Care Physician: Octavio Cedeño M.D. HISTORY AND PHYSICAL CHIEF COMPLAINT Fever, tachycardia, hypoxia. HISTORY OF PRESENT ILLNESS This is a 76-year-old female who has a history of cirrhosis, autoimmune hemolytic anemia, diabetes, lupus, uterine cancer with previous hysterectomy, skin cancer with previous excision, arthritis. She was recently admitted in the [facility] from 06/16/2016 and discharged on 07/16/2016. In the emergency room, she presented with chief complaint of having upper GI bleed. She underwent initially EGD which shows large area in clot on the gastric side of the gastroesophageal junction. Proximal stomach was full of blood. Multiple large mucosal tears were seen proximally with distention of stomach initially, then eventually she underwent operating room with exploratory laparotomy. She was found to have mass on the pancreas and she underwent vertical hemigastrectomy, splenectomy, distal pancreectomy, resection of left upper quadrant phlegmon, repair of the incisional hernia, liver biopsy. The pathology shows positive for non-Hodgkin lymphoma. She was in the ICU, she was on the vent, eventually she had a slow process. She was extubated. She required again intubation secondary to respiratory failure but eventually she was stabilized. She had a bronchoscopy also which showed mucous plugging. She had the abdominal wound with a wound VAC and she was eventually placed in the half-way, [facility] from 07/16/2016. As per family who is at the bedside, she has been eating now and she was found to be in the half-way today hypoxic. Oxygen saturation was 86%. She has a fever and tachycardic and she was sent to the emergency room for further workup and evaluation. She was found to have sodium 121; white count 21,000. Chest x-ray shows retrocardiac left lower lobe infiltrate. Eventually she was admitted. She is telling me she had been having some cough. She is a rather poor historian but she is alert, oriented times 3. She denies chest pain. She denies nausea or vomiting. Her daughter and family is also at her bedside. PAST MEDICAL HISTORY 1. History of cirrhosis with recent liver biopsy. 2. History of non-Hodgkin lymphoma recently diagnosed. 3. Autoimmune hemolytic anemia. 4. Diabetes. 5. Dyslipidemia. 6. History of lupus. 7. History of uterine cancer with hysterectomy. 8. Skin cancer, status post excision, melanoma. 9. Recent GI bleed in June 2016. She underwent exploratory laparotomy Unit #: [id number] #: [id number] Patient: LENKA HERNÁNDEZ with vertical hemigastrectomy/splenectomy/distal pancreectomy/repair of recurrent incisional hernia. PAST SURGICAL HISTORY 1. History of right total knee arthroplasty. 2. Hysterectomy. 3. Melanoma excision. 4. History of ventral/incisional hernia. 5. Recent history of liver biopsy in June 2016. 6. History of exploratory laparotomy with vertical gastrectomy, splenectomy, distal pancreectomy and repair of incision hernia in June 2016. GROUP HOME MEDICATIONS 1. Midodrine 2.5 mg one tablet t.i.d. for hypotension. 2. Metronidazole 500 mg t.i.d. 3. Zofran ODT 4. MiraLAX. 5. Fenofibrate mg for dyslipidemia. 6. Multivitamin one tablet daily. 7. Lasix 40 mg daily. 8. Cipro 250 b.i.d. for 14 days. 9. Melatonin nighttime. 10. Milk of magnesia. 11. Hydrocodone 5/325 q.6 h. p.r.n. 12. NovoLog sliding scale. 13. Lantus 10 units subcu q.a.m. SOCIAL HISTORY She used to smoke 1-1/2 to 2 packs daily for many years, she just quit recently two months ago during the hospitalization. She denies alcohol, she denies illicit drug use. FAMILY HISTORY Noncontributory to current case. REVIEW OF SYSTEMS Negative except for history of presenting illness. PHYSICAL EXAMINATION VITAL SIGNS: Temperature 98.4, heart rate 117, respiratory rate 27, blood pressure 122/107, oxygen saturation 92%. GENERAL: Elderly female lying in the bed, comfortably, currently not in any distress. She is alert, awake, oriented x3. HEENT: Pupils are equal and reactive to light and accommodation. Head is normocephalic, atraumatic. NECK: Supple. No JVD. LUNGS: Clear to auscultation. No rhonchi, no wheezing. HEART: S1, S2. Regular rate and rhythm. Tachycardia. ABDOMEN: Positive G-tube. Slight yellowish discharge around the G-tube site. In the midline central area, there is positive open wounds. EXTREMITIES: Normal. No cyanosis, clubbing, or edema. NEUROLOGIC: Alert, oriented x4. Sensation is intact. She is moving all extremities. DIAGNOSTIC STUDIES LABORATORY: Sodium 121, potassium 3.6, chloride 82, glucose 156, BUN 29, creatinine 2.1. CBC white count 21,000, hemoglobin 10, hematocrit 33, Unit #: [id number] #: [id number] Patient: LENKA HERNÁNDEZ platelets 438. Lactic acid level 1.2. Troponin less than 0.05. IMAGING: Chest x-ray shows retrocardiac left lower lobe infiltrate. ASSESSMENT AND PLAN 1. Pneumonia, possible aspiration. Will start the patient on Zosyn and vancomycin. Most likely healthcare-associated pneumonia. 2. Hyponatremia. 3. Acute kidney injury. Normal BUN and creatinine on discharge from the [facility]. Will give some IV fluid and monitor closely. 4. Leukocytosis. 5. History of recent exploratory laparotomy with vertical hemigastrectomy, splenectomy, distal pancreectomy, and repair of incisional hernia. 6. Recently diagnosed non-Hodgkin lymphoma. 7. Recently diagnosed cirrhosis with liver biopsy. 8. History of autoimmune hemolytic anemia. 9. Diabetes. Continue Lantus, place on sliding scale. 10. History of lupus. 11. History of uterine cancer with previous hysterectomy. 12. History of skin cancer, melanoma. 13. Dyslipidemia. 14. DVT prophylaxis. Place the patient on Lovenox. Dictated by Ashley Avery TD: 07/27/2016 21:59 JOB #: [id number] HISTORY AND PHYSICAL Page 1 of 1 X X HISTORY AND PHYSICAL
--- NOTE | ~2016-07-27 | CO ---
Unit #: [id number] #: [id number] Patient: LENKA HERNÁNDEZ [id number] [place], [place] [address] [id number] I MR#: [id number] NAME: LENKA HERNÁNDEZ ROOM: [facility] Age: 76 Sex: F Admission Date: 07/27/2016 : 1940 Attending Physician: Weston Mabry M.D. Primary Care Physician: Octavio Cedeño M.D. CONSULTATION REPORT CHIEF COMPLAINT Fever and hypoxia. HISTORY OF PRESENT ILLNESS 76-year-old female presented with a past medical history of cirrhosis, autoimmune hemolytic anemia, diabetes mellitus, lupus, uterine cancer, previous history of hysterectomy, skin cancer, who recently was discharged from [facility]. Presented with a complaint of fever. She was admitted at [facility], underwent exploratory laparotomy and extensive surgical procedure having gastrectomy, splenectomy and distal pancreatectomy and resection of the left upper quadrant phlegmon and repair of the incisional hernia and liver biopsy. Pathology positive for non-Hodgkin lymphoma. I am seeing the patient at bedside. Appears to be very lethargic, unable to answer questions, protecting airway very well with a low blood pressure. REVIEW OF SYSTEMS Unobtainable. PAST MEDICAL HISTORY As described above. PAST SURGICAL HISTORY As described above. MEDICATION Medication as per MAR has been reviewed. SOCIAL HISTORY Half pack smoker per day. No alcohol or drug abuse as per history. PHYSICAL EXAMINATION VITAL SIGNS: Temperature 98, pulse 100, respirations 16, blood pressure is 100/60. NEUROLOGICAL: She is lethargic. CVS: S1+ S2. RESPIRATION: Bilateral air entry, bilateral mild rhonchi. GI: Nontender, soft. Bowel sounds positive. Positive ascites. EXTREMITIES: Positive edema. DIAGNOSTIC STUDIES Labs and imaging have been reviewed. Unit #: [id number] #: [id number] Patient: LENKA HERNÁNDEZ ASSESSMENT AND PLAN 1. Sepsis. 2. Hypertension. 3. Hyponatremia. 4. Acute kidney injury. 5. Pneumonia, likely on the chest x-ray. 6. Leukocytosis. 7. History of recently diagnosed non-Hodgkin lymphoma. 8. Extensive recent abdominal surgery. 9. Immunocompromised patient. 10. Status post splenectomy. At this point, plan is to add patient on broad spectrum IV antibiotic and start her on IV pressors, monitor BUN and creatinine, monitor labs. GI and DVT prophylaxis. Will continue to aggressive monitor in Intensive Care Unit. Will follow cultures. Please see orders for detailed plan. Thank you very much for this consultation. Dictated by... Ashley Gibbs TD: 07/29/2016 10:59 JOB #: [id number] CONSULTATION REPORT Page 1 of 1 X Felice aBrlow MD X CONSULTATION REPORT
--- NOTE | ~2016-07-27 | CO ---
Unit #: [id number] #: [id number] Patient: LENKA HERNÁNDEZ [id number] [place], [place] [address] [id number] MR#: [id number] NAME: LENKA HERNÁNDEZ ROOM: 322 Age: 76 Sex: F Admission Date: 07/27/2016 : 1940 Attending Physician: Graciela Mehta M.D. Primary Care Physician: Octavio Cedeño M.D. CONSULTATION REPORT CHIEF COMPLAINT Non-Hodgkin lymphoma, involvement of spleen, stomach, distal pancreas, left adrenal gland, lymph node, left sided pleural effusion, cirrhosis of the liver. HISTORY OF PRESENT ILLNESS This is a 76-year-old female who developed upper GI bleed during the first week of June 2016. She presented to [facility]. The patient had extensive imaging study. However, patient had a splenectomy, partial gastrectomy, left adrenalectomy, distal pancreatectomy, removal of the lymph node. They were all positive for non-Hodgkin lymphoma. Detailed pathology is not available. I just talked to the staff at [facility]. The patient also has cirrhosis of the liver secondary to obesity. This history is obtained from her daughter. The patient is in and out of the hospital during the last three months. She has never been at home. She is either in the hospital or rehab. She had been intubated twice. Now, comes here with COPD exacerbation, (1) , anemia, significant decline in performance status, on and off confusion. CT of the head is normal. REVIEW OF SYSTEMS CONSTITUTIONAL: No fever, no chills, no sweats, no weight loss. EYES: No visual symptoms. EARS, NOSE AND THROAT: There is no runny nose or sore throat or difficulty hearing. CARDIOVASCULAR: No chest pain. No shortness of breath. No palpitations. No orthopnea. No PND. RESPIRATORY: No cough. No wheezing. No hemoptysis. GASTROINTESTINAL: No nausea, vomiting, diarrhea, constipation, hematochezia or melena. GENITOURINARY: No urinary frequency, hesitancy or urgency. No blood in the urine. MUSCULOSKELETAL: No muscle or joint pain. NEUROLOGIC: No headache. No numbness or tingling. No weakness. No seizure. ACCOUNTS COLLECTOR: On and off confusion. PSYCHIATRIC: No anxiety, depression or mood disturbance. ENDOCRINE: No excessive urination or thirst. Unit #: [id number] #: [id number] Patient: LENKA HERNÁNDEZ DERMATOLOGIC: No rash or change in the skin. ALLERGIC/IMMUNOLOGIC: No symptoms. HEMATOLOGIC/LYMPHATIC: Denies any symptoms. PAST MEDICAL HISTORY 1. Non-Hodgkin lymphoma. 2. Extensive surgery on the abdominal lymph node. 3. Left sided pleural effusion. 4. Cirrhosis. 5. Renal failure. 6. Anemia. 7. Uterine cancer resected in 2006, received radiation, no chemo. ALLERGIES Sulfa. SOCIAL HISTORY The patient has been smoking two packs per day for 40 years. Denied alcohol abuse. Used to work as a bingo cashier. SURGICAL HISTORY 1. Extensive surgery for resection of the spleen, stoma, left adrenal gland and pancreas. 2. Hysterectomy. 3. Cholecystectomy. FAMILY HISTORY Mother had breast cancer. MEDICATIONS Her current medications include: 1. Zerbaxa. 2. Lopressor. 3. Zyvox. 4. Combivent. 5. Nystatin. PHYSICAL EXAMINATION GENERAL: Patient is comfortable. ECOG is 0. The patient is pleasant. VITAL SIGNS: Afebrile. Pulse 66, respiratory rate 19, O2 sat on 2 L 100%, blood pressure 141/79. HEENT: Moist mucosa. Pupils equally reactive to light. Extraocular muscles intact. Sclerae anicteric. No obvious bleeding from nasal mucosa or oral mucosa. Scalp normal. Hearing normal. NECK: No JVD. No lymphadenopathy. LYMPHATIC/HEMATOLOGIC: There is no palpable adenopathy in the neck, axilla or inguinal area. CARDIOVASCULAR: S1, S2. Regular rate and rhythm. No S3 or S4. RESPIRATORY: Bilateral wheezes, rhonchi. ABDOMEN/GASTROINTESTINAL: Abdomen is soft, nontender, nondistended. No hepatosplenomegaly. EXTREMITIES: There is no clubbing, no cyanosis, no edema. No varicose veins. NEUROLOGICAL: Patient is alert, awake and oriented x3. Cranial nerves II-XII are intact. Sensory grossly intact. Motor is 4/5 in all four extremities. Gait is normal. Station is normal. Language is normal. Memory is normal. DTRs +2 in all four extremities. MUSCULOSKELETAL: No joint swelling. No bony tenderness. No muscle Unit #: [id number] #: [id number] Patient: LENKA HERNÁNDEZ tenderness. SKIN: No petechiae, no rash, no ecchymosis. PSYCHIATRIC: No anxiety. No delusions or hallucinations. There is no agitation. Eye contact is normal. Affect is appropriate. There is no flight of ideas. DIAGNOSTIC STUDIES IMAGING: CT of the chest, abdomen and pelvis - there is a left sided pleural effusion. There is an abdominal lymph node measuring 1.8 x 1.5 cm cirrhosis of the liver. LABORATORY: Creatinine is 2.6, CO2 20, BNP 698. Iron studies normal. WBC 7.6, hemoglobin 8.9, platelets 523. ASSESSMENT AND PLAN This is a 76-year-old female who has the following active issues: 1. Non-Hodgkin lymphoma: The patient had extensive surgery at [facility]. I spoke to the staff. I don't have the official pathology report. However, it is positive for lymphoma. The patient had resection of the spleen, left adrenal gland, part of the stoma, distal pancreatectomy. At present, she has left sided pleural effusion that is positive for monoclonal B cell. She has a less than 2 cm abdominal lymph node. She has not received any chemotherapy. At present, will provide supportive care. If improved, then will consider treatment in the future. She is not a candidate for any chemotherapy. 2. Anemia: Iron study is normal. This most likely is due to chronic disease. 3. Gastrointestinal: Patient has cirrhosis of the liver. This is due to obesity. Supportive care. 4. Uterine cancer: The patient had a hysterectomy and radiation. At present, no obvious sign of disease. DISCUSSION I had an extensive discussion with the patient, daughter and primary care team. Her overall condition is poor. We will update them in the future. Dictated by... Ashley Maguire/clark TD: 08/07/2016 12:19 JOB #: [id number] Unit #: [id number] #: [id number] Patient: LENKA HERNÁNDEZ CONSULTATION REPORT Page 1 of 1 X Ramses Moreno MD X CONSULTATION REPORT
--- NOTE | ~2016-07-27 | CR72 ---
[facility] A Service of [facility] RADIOLOGY TEXT RESULTS PATIENT: LENKA HERNÁNDEZ LOCATION: [place] [address] : 42 UNIT #: [id number] AGE: [address]: Graciela Mehta MD SEX: F ORDER DR: [id number] [facility] [address] [facility]. [place], [place] [address] [id number] I MR#: [id number] Acc #: [id number] NAME: LENKA HERNÁNDEZ : 1940 SEX: F STUDY DATE/TIME: 08/04/2016 4:53 UNIT: [facility] ROOM: [facility] STUDY DESCRIPTION: CR Chest Single View Portable Attending Physician: Graciela Mehta M.D. Ordering Physician: Graciela Mehta M.D. Primary Care Physician: Octavio Cedeño M.D. MEDICAL IMAGING REPORT This report is preliminary unless electronic signature is present EXAM Single view chest. INDICATION Shortness of air for 8 days. Cough and congestion. FINDINGS Single, portable, AP view of the chest compared to 08/02/2016. Right IJ central line remains in place. Heart and mediastinal contours are unchanged. Mild interstitial opacities and bilateral pleural effusions are unchanged. No pneumothorax. IMPRESSION No interval change. Dictated by... Zen Alba M.D. THIS IS AN ELECTRONICALLY VERIFIED REPORT Zen Alba M.D. at 08/04/2016 11:14 PM GRICELDA/delonte TD: 08/04/2016 08:51 JOB #: [id number] MEDICAL IMAGING REPORT Page 1 of 1 COPY
--- NOTE | ~2016-07-27 | CR72 ---
[facility] A Service of [facility] & [facility] RADIOLOGY TEXT RESULTS PATIENT: LENKA HERNÁNDEZ LOCATION: [address] : [birth year] UNIT #: [id number] AGE: [address]: Graciela Mehta MD SEX: F ORDER DR: [id number] [facility] [address] [facility]. [place], [place] [address] [id number] I MR#: [id number] Acc #: [id number] NAME: LENKA HERNÁNDEZ : 1940 SEX: F STUDY DATE/TIME: 08/04/2016 11:55 UNIT: [facility] ROOM: [facility] STUDY DESCRIPTION: CR Chest Single View Portable Attending Physician: Graciela Mehta M.D. Ordering Physician: Ed Bubba Estrella M.D. Primary Care Physician: Octavio Cedeño M.D. MEDICAL IMAGING REPORT This report is preliminary unless electronic signature is present EXAM Portable chest, 08/04/2016. HISTORY 76-year-old female with shortness of air since 07/27/2016. COMPARISON Chest 08/04/2016 at 0453 hours. FINDINGS Frontal chest demonstrates persistent small bilateral pleural effusions, left greater than right. Bibasilar atelectasis/infiltrate is unchanged. No pneumothorax. Right IJ central venous catheter is stable. Heart size and mediastinum are stable. IMPRESSION No significant change in small bilateral pleural effusions and bibasilar atelectasis/infiltrate. Dictated by... Minesh Clinton M.D. THIS IS AN ELECTRONICALLY VERIFIED REPORT Minesh Clinton M.D. at 08/05/2016 6:23 AM SARITHA/delonte TD: 08/04/2016 12:37 JOB #: [id number] MEDICAL IMAGING REPORT Page 1 of 1 COPY
--- NOTE | ~2016-07-27 | CR72 ---
[facility] A Service of [facility] & [facility] RADIOLOGY TEXT RESULTS PATIENT: LENKA HERNÁNDEZ LOCATION: [facility] 322-01 : 44 UNIT #: [id number] AGE: [address]: Graciela Mehta MD SEX: F ORDER DR: [id number] [facility] [address]. [place], [place] [address] [id number] I MR#: [id number] Acc #: [id number] NAME: LENKA HERNÁNDEZ : 1940 SEX: F STUDY DATE/TIME: 08/06/2016 7:37 UNIT: [address] ROOM: [facility] STUDY DESCRIPTION: CR Chest Single View Portable Attending Physician: Graciela Mehta M.D. Ordering Physician: Graciela Mehta M.D. Primary Care Physician: Octavio Cedeño M.D. MEDICAL IMAGING REPORT This report is preliminary unless electronic signature is present EXAM Portable chest HISTORY Shortness of air, left thoracentesis. COMPARISON 08/05/2016 FINDINGS Right neck approach central line remains in place. No significant change in cardiopulmonary status. Continued mild cardiomegaly with diffuse pulmonary vascular congestion and mild interstitial prominence. Fluid thickens the right minor fissure. Probable small bilateral effusions. Suspected old fracture deformity proximal left humerus. No pneumothorax. Dictated by... Orlin Warren M.D. THIS IS AN ELECTRONICALLY VERIFIED REPORT Orlin Warren M.D. at 08/06/2016 3:56 PM Peg TD: 08/06/2016 07:55 JOB #: [id number] MEDICAL IMAGING REPORT Page 1 of 1 COPY
--- NOTE | ~2016-07-27 | FU ---
[facility] Nutrition Therapy DATE: 07/30/16 Patient: LENKA HERNÁNDEZ Physician: JOHN Address: [address] [facility] Room/Bed: [address], Zip: [place] [address] Admit Date: 07/27/16 Date of : 42 Height: 5 4 Weight: 212 96.5 NUTRITION MONITORING/FOLLOW-UP: Reason: Nutrition follow-up Admitting Dx: 76 y/o female admitted with PNA, fever, upper GIB, recent extensive abdominal surgery Anthropometrics: Ht: 64", admission wt: 94.5 kg, current wt: 96.5 kg, BMI: 35.8 (Stage II obese; based on admission wt) Labs: Na 130, Glucose 188, POC 181, GFR 49.4, K/Mg WNL, no Phos Meds: Milk of Mg, Miralax, IVF w/ D5, MgSO4, KCL, Zofran prn, Therapeutic formula, Novolog (low SSI), IV Abx GI: Last BM 07/30 (diarrhea per rectal tube), denies N/V, PEG tube clamped (infected) Skin: Issues noted- no change- RN noted dressing changed and abdominal incision looked good Estimated Nutrition Needs: Increased Assessment: Chart reviewed, events noted. ID to see due to positive blood cultures, to get thoracentesis today. RD previously diagnosed with severe PCM, pt has had extensive abdominal surgery. PEG tube remains clamped due to infection, diarrhea noted. Patient tolerating CC/mechanical soft/NDD2 diet with thin liquids per CLAY ARTIST, patient reports "ok" appetite, ate 50% breakfast this morning (RD observed tray), will order ONS as previously recommended now that PO diet is advanced. Abdominal incision is healing per nursing. Weight stable, still with hyperglycemia. See nutrition goals, dx and recs as stated below. Will continue to follow hospital course. Dx: Severe protein calorie malnutrition r/t clinical condition, abdominal surgery AEB prolonged poor oral intake < 50% energy needs, > 5% weight loss in 1.5 months (14% body weight loss) - ACTIVE Intervention: Chocolate Glucerna TID, sugar free magic cup BID Monitoring, Evaluation and Goals: 1. Tolerance of diet advancement - MET 2. GI tolerance - IN PROGRESS, + DIARRHEA/RECTAL TUBE 3. Improvement in labs - IN PROGRESS, STILL + HYPERGLYCEMIA/HYPONATREMIA 4. Maintain weight status/preserve LBM - IN PROGRESS, CURRENT WT STABLE [facility] Nutrition Therapy DATE: 07/30/16 Patient: LENKA HERNÁNDEZ Physician: JOHN Address: [address] [place] [address] Room/Bed: [address], Zip: [place] [address] Admit Date: 07/27/16 Date of : 42 Height: 5 4 Weight: 212 96.5 5. Promote wound healing - IN PROGRESS, ABDOMINAL INCISION HEALING WELL New nutrition goals: 1. PO intake > 50-75% of meals. 2. ONS intake > 50% TID. 3. Promote regular GI function. 4. Improvement in labs (lytes, glucose). 5. Maintain weight status, preserve LBM. 6. Promote wound healing. Monitor: Per protocol, criteria to determine if above goals met Recommendations: 1. RD will order oral nutrition supplements now that patient is no longer NPO per previous RD recommendations: chocolate Glucerna TID, sugar free magic cup BID. Please continue to encourage oral intake and assist with meals as needed. Fluids per MD noting hyponatremia. 2. Continue daily MVI with minerals, consider changing SSI to medium correction scale noting hyperglycemia. 3. Hold bowel regimen with diarrhea. 4. Continue to weigh q 3 days for monitoring purposes. 5. If the patient consumes < 50% of meals consider initiating enteral nutrition if PEG site is clean. See initial RD assessment dated 07/28/16 for recommendations. Status: Moderate nutrition risk Respectfully, Elvie Patrick, RD, LD Food and Nutritional Services [facility] Nutrition Therapy DATE: 07/30/16 Patient: LENKA HERNÁNDEZ Physician: JOHN Address: [address] [place] [address] Room/Bed: [address], Zip: [place] [address] Admit Date: 07/27/16 Date of : 42 Height: 5 4 Weight: 212 96.5 cc: client file
--- NOTE | ~2016-07-27 | DS ---
Unit #: [id number] #: [id number] Patient: LENKA HERNÁNDEZ [id number] [address] [address] [id number] MR#: [id number] NAME: LENKA HERNÁNDEZ ROOM: 322 Age: 76 Sex: F Admission Date: 07/27/2016 : 1940 Discharge Date: Attending Physician: Graciela Mehta M.D. Primary Care Physician: Octavio Cedeño M.D. DISCHARGE SUMMARY DISCHARGE DIAGNOSES 1. Sepsis. 2. Acute hypoxic respiratory failure. 3. Methicillin-resistant Staphylococcus aureus pneumonia. 4. Methicillin-resistant Staphylococcus aureus abdominal abscess. 5. Pseudomonas abdominal infection, multidrug resistant. 6. Pseudomonas sepsis and bacteremia, multidrug resistant. 7. Bilateral pleural effusions, status post thoracentesis. 8. Acute kidney injury. 9. History of gastrointestinal bleed. 10. Anemia, secondary to recent acute blood loss, no active bleeding now. 11. Diabetes mellitus type 2, uncontrolled. 12. Recent history of nonHodgkin's lymphoma, status post extensive abdominal surgery including splenectomy, partial pancreatectomy, and partial gastrectomy. 13. Immunocompromised state. 14. Metabolic acidosis. 15. Severe protein malnutrition. 16. Hyperphosphatemia. 17. Cirrhosis on the CAT scan. 18. Volume overload. 19. History of atrial fibrillation with rapid ventricular rate. 20. Autoimmune hemolytic anemia. 21. History of lupus. 22. History of uterine cancer with hysterectomy. 23. History of skin cancer, status post excision of melanoma. 24. History of chronic obstructive pulmonary disease with exacerbation. 25. Hypokalemia. 26. Hypomagnesemia. 27. Acute systolic heart failure. CONSULTATIONS 1. Dr. Barlow. 2. Dr. Moreno. 3. Dr. Sommer. 4. Dr. Mcclendon. 5. Dr. Farley. PROCEDURES 1. Patient had central line placement. 2. Patient had thoracentesis. DIAGNOSTIC STUDIES LABORATORY: Sodium 136, potassium 3.9, creatinine 2.7. Liver enzymes Unit #: [id number] #: [id number] Patient: LENKA HERNÁNDEZ normal. Albumin 2. Magnesium 2.1. WBC 7.7, hemoglobin 9, platelets 467,000. B12 of 941. IMAGING: CT of the head shows atrophy, mild chronic vessel deep white matter changes present. No acute findings. Chest x-ray shows mild vascular congestion, bibasilar effusions. CT thorax without contrast shows no adenopathy, moderately large left pleural effusion present, moderately right pleural effusion present, bilateral slight atelectasis present. CAT scan of the abdomen and pelvis shows increased size left pleural effusion. Postoperative changes present. Small retroperitoneal lymph nodes present. Cirrhotic morphology of liver present. ALLERGIES Sulfa and ibuprofen. DISCHARGE MEDICATIONS 1. DuoNeb 3 mL inhalation q.4 p.r.n. shortness of breath. 2. Sodium bicarbonate 650 three times daily. 3. Amiodarone 200 p.o. b.i.d. Stop date August 13, 2016. After that, amiodarone 200 p.o. daily. 4. Zofran 8 mg q.8 p.r.n. nausea. 5. Metoprolol 12.5 p.o. b.i.d. 6. MiraLax 17 g p.o. daily. 7. NovoLog low dose sliding scale. 8. ProAmatine 5 mg q.8. 9. Phenolate spray p.r.n. throat pain. 10. Multivitamin one tablet daily. 11. Lortab 5 mg q.8 p.r.n. pain. 12. Dakin's one-eighth solution apply topically. 13. Amazing Butt Cream apply topically daily. 14. Zyvox 600 mg IV b.i.d. for three more days. 15. Zerbaxa 0.375 g IV q.8. HOSPITALIZATION COURSE This is a 76 year old admitted because of fever and abdominal pain. Sepsis with abdominal abscess, bilateral pneumonia, and urinary tract infection, and Pseudomonas bacteremia. The patient is seen by infectious disease. Blood cultures are growing pseudomonas. Abdominal drainage is growing MRSA and pseudomonas. Sputum is growing pseudomonas. Urinary cultures are negative. Patient was started on broad-spectrum antibiotics. Currently, patient afebrile. WBC normal. She will be discharged on Zyvox for three more days and Zerbaxa for three more days as per infectious disease's recommendations. After that, she needs to follow with MD at rehab for followup. Atrial fibrillation with rapid ventricular rate: Patient is seen by Dr. Mcclendon. Patient currently on amiodarone, rate controlled. Acute kidney injury, most likely a combination of contrast dye induced and antibiotics which has been changed. Currently, creatinine is 2.7. She needs BMP checked q. weekly and follow with MD at rehab. Also, follow with Dr. Dey in two weeks' time. Unit #: [id number] #: [id number] Patient: LENKA HERNÁNDEZ Acute hypoxic respiratory failure: Currently, she is on 2 L, continue with that, most likely from pneumonia. Anemia: Acute on chronic iron deficiency. No active bleeding. Sepsis: Some multiple infections resolved. Bilateral pneumonia with pseudomonas: Continue with IV antibiotics. Electrolyte imbalance: Replace by renal. NonHodgkin's lymphoma: Recently diagnosed at [facility]. Patient had recent exploratory laparotomy with gastric pancreatectomy and splenectomy. Currently, she has a drain, PEG tube, and colostomy. Patient is seen by surgeon and they think patient is stable to be discharged. Patient had acute systolic heart failure: Patient received diuretics, currently is stable. Patient is in immunocompromised state. Bilateral pleural effusions, status post thoracentesis. Patient received BiPAP for her respiratory failure. Discussed with the daughter, Lisette, who is her POA. Currently, she wants full code. Even though she knows her prognosis, the family wants full code. Prognosis ferry terminal agent is very poor. High risk of re-admission because of generalized medical condition and multiple co-morbidities and nonHodgkin's lymphoma. DISPOSITION The patient will be discharged to rehab. Discussed with jam Ross to be discharged. FOLLOWUP 1. Follow with Dr. Dey in two weeks' time. 2. BMP q. weekly. 3. Follow with MD at rehab for creatinine or with Dr. Dey. Discussed with Dr. Moreno. According to him, patient is too sick for any kind of treatment for her lymphoma now. She needs to get better with her infections before starting any treatment for that. Discharge time taken is 40 minutes. Dictated by... Graciela Mehta M.D. Bertha TD: 08/09/2016 11:48 JOB #: [id number] Unit #: [id number] #: [id number] Patient: LENKA HERNÁNDEZ DISCHARGE SUMMARY Page 1 of 1 X Graciela Mehta MD DISCHARGE SUMMARY
--- NOTE | ~2016-07-27 | CT4 ---
[facility] A Service of [facility] & [facility] RADIOLOGY TEXT RESULTS PATIENT: LENKA HERNÁNDEZ LOCATION: [address] : [birth year] UNIT #: [id number] AGE: [address]: Weston Mabry MD SEX: F ORDER DR: [id number] [facility] [address] [facility]. [place], [place] [address] [id number] I MR#: [id number] Acc #: [id number] NAME: LENKA HERNÁNDEZ : 1940 SEX: F STUDY DATE/TIME: 07/28/2016 15:13 UNIT: [facility] ROOM: [facility] STUDY DESCRIPTION: CT Abd and Pelv Wo Cont Attending Physician: Weston Mabry M.D. Ordering Physician: Romario Sommer M.D. Primary Care Physician: Octavio Cedeño M.D. MEDICAL IMAGING REPORT This report is preliminary unless electronic signature is present EXAM CT abdomen and pelvis without contrast HISTORY History is leukocytosis, elevated white blood cell count, recently diagnosed non-Hodgkin's lymphoma. Cirrhosis. Pneumonia. TECHNIQUE This CT exam was performed with one or more of the following radiation dose reduction techniques: automatic control, adjustment of mA and/or kV according to patient size, and iterative reconstruction. FINDINGS CT abdomen and pelvis was performed with oral contrast and without IV contrast. CT ABDOMEN: There is a small left pleural effusion. Moderately extensive atelectasis in the posterior left lower lobe. Additional mild atelectasis in the right middle lobe and right lower lobe. Splenectomy, partial gastrectomy, and resection of the pancreatic tail. Stranding about the celiac axis and remaining pancreas, and in the left upper quadrant, could be residual postoperative edema or inflammatory stranding. Mild left paraaortic adenopathy measuring 1.2 cm at the level of the left renal hilum and 1.6 cm in the infrarenal left periaortic region. Probable residual drain tract in the left upper quadrant with fluid within the drain tract along the subcutaneous tissues and extending into the left upper quadrant. Cholecystectomy. No free fluid. Gastrostomy tube extends into the stomach. No bowel dilatation. Mild bilateral hydronephrosis. Nodular liver contour, characteristic of cirrhosis. Normal caliber abdominal aorta. No bowel obstruction. CT PELVIS: Hysterectomy. No adenopathy. Rowley catheter in the bladder. [facility] A Service of [facility] RADIOLOGY TEXT RESULTS PATIENT: LENKA HERNÁNDZE LOCATION: [facility] CICCU2-03 : 42 UNIT #: [id number] AGE: [address]: Weston Mabry MD SEX: F ORDER DR: IMPRESSION 1. Mild left periaortic adenopathy measuring up to 1.6 cm. Given the patient's history, this could be secondary to lymphoma. No adenopathy is identified in the remainder of the abdomen and pelvis. 2. There is [id number] stranding about the celiac axis and remaining pancreas and upper abdominal mesenteric fat and this could be postoperative. Evaluation is partly limited without contrast. 3. Partial gastrectomy, splenectomy and resection of the pancreatic tail. 4. Cholecystectomy and hysterectomy. 5. Morphologic changes of cirrhosis. 6. Mild bilateral hydronephrosis but no obstructing urinary calculi. 7. Small left pleural effusion with moderately extensive atelectasis posterior left lower lobe and mild atelectasis in the right lung base. Dictated by... Curt Kerr M.D. THIS IS AN ELECTRONICALLY VERIFIED REPORT Curt Kerr M.D. at 07/29/2016 2:34 PM FLORL/renetta TD: 07/29/2016 04:37 JOB #: [id number] MEDICAL IMAGING REPORT Page 1 of 1 COPY
--- NOTE | ~2016-07-27 | CO ---
Unit #: [id number] #: [id number] Patient: LENKA HERNÁNDEZ [id number] [address] [place], [place] [address] [id number] I MR#: [id number] NAME: LENKA HERNÁNDEZ ROOM: 322 Age: 76 Sex: F Admission Date: 07/27/2016 : 1940 Attending Physician: Graciela Mehta M.D. Primary Care Physician: Octavio Cedeño M.D. Consultation Date: 08/05/2016 CONSULTATION REPORT REASON FOR CONSULTATION Renal insufficiency. Thank you very much for asking me to see this patient in consultation. HISTORY OF PRESENT ILLNESS Ms. Rima Hernández is a 76-year-old female, who presented here on 07/27/2016. She was at [facility] for approximately a month, where she was diagnosed with non-Hodgkin lymphoma. She underwent a partial gastrectomy, distal pancreatectomy and splenectomy, was went to rehab and subsequently presented here with hypoxemia, subsequently respiratory insufficiency, and has grown out Pseudomonas bacteremia as well as Pseudomonas and MRSA in sputum. The patient was noted on 08/01/2016 to have a creatinine of 0.8 since that time and it has increased up to a creatinine of 2.3 today. Because of this, I was asked to see the patient. The patient is alert. She is on a face mask. She actually states she is not short of breath. She is not having any chest pain or chest heaviness. She is just tired and weak. Decreased appetite and some mild abdominal discomfort. PAST MEDICAL HISTORY History of non-Hodgkin lymphoma, again status post partial gastrectomy, distal pancreatectomy and splenectomy. She has a history of cirrhosis; history of anemia, autoimmune hemolysis type; history of SLE; history of uterine CA, status post hysterectomy; history of arthritis; history of diabetes mellitus; history of right knee; history of melanoma removed; noted here, she has a history of decreased ejection fraction around 35% to 40% on echo. ALLERGIES No known drug allergies. SOCIAL HISTORY Previous smoker, none now. No alcohol. MEDICATIONS Her medicines currently include amiodarone for atrial fibrillation. Sodium bicarbonate was started today orally. Lopressor, ProAmatine, fenofibrate, Zerbaxa, Zyvox, and Lovenox. She was on colistin, but that was discontinued as well as she was on Flagyl that was discontinued. REVIEW OF SYSTEMS As mentioned in the HPI, otherwise negative. Unit #: [id number] #: [id number] Patient: LENKA HERNÁNDEZ PHYSICAL EXAMINATION VITAL SIGNS: Temperature 99.4, T-max; pulse 66 to 84; blood pressure 105 to 154/59. HEENT: She is normocephalic and atraumatic. Her pupils are equal, round, and reactive to light. Extraocular muscles are intact. Hearing appears to be normal. Mouth is dry. No erythema. No exudate. NECK: Supple. No adenopathy. CARDIAC: She appears to have a regular rhythm currently, although she was in atrial fibrillation apparently earlier today and has been in that intermittently. LUNGS: A few bilateral rhonchi. Decreased breath sounds at the bilateral bases and a few rales at her bases. ABDOMEN: Obese. Bowel sounds are positive for just a wound that is dressed. She has positive body edema. EXTREMITIES: She has positive lower extremity edema. Her pulses are intact in the lower extremities. NEUROLOGIC: She appears to be alert and oriented. Able to move all extremities. : Rowley catheter is in place. DIAGNOSTIC STUDIES LABORATORY RESULTS: She has a sodium of 133, potassium 3.9, chloride is 104, bicarb is 16, BUN of 19, creatinine of 2.3, glucose of 154, calcium is 8.1, phosphorus 4.5, magnesium is 2.6, albumin is 2. BNP on 08/03/2016 was 1028. UA on 07/27/2016 on admission, shows specific gravity of 1.005, 10 to 25 rbc's, too numerous to count wbc's, no proteinuria, and again had the Pseudomonas. IMAGING STUDIES: She did undergo a CT scan on 08/01/2016 of her chest and abdomen with IV contrast. ASSESSMENT AND PLAN 1. Acute kidney injury. This lady has acute kidney injury, most likely related to a combination of contrast dye induced. Creatinine started to go up today after she received a contrast dye and has continued to worsen. She also was on the colistin that could also contribute to her renal failure. She does certainly have increased volume on exam with pleural effusions, positive body edema, positive lower extremity edema, although she does have a low albumin. Certainly, if her urine output continues to worsen or if she gets more short of breath, then we may need to restart her on some IV diuretics. I doubt if she is intravascularly depleted at this time. We will keep Rowley catheter in. I have ordered urinalysis. Repeat urine culture, urine eosinophils, random urine sodium. We will repeat CMP, magnesium, phosphorus. Do CPK and repeat BNP in the morning. We will follow her inputs and outputs, follow her labs. Depending on what all that shows, depending on what further workup and treatment. Certainly, we will try to keep her off PPIs, aminoglycosides, nonsteroidal, keep her off vancomycin if possible and other nephrotoxins. We will try to avoid contrast dye for now. 2. Volume overload. Again, third-space fluid. Questionable from low albumin versus heart failure versus other. We will hold on Lasix tonight, but we will follow closely. 3. Cirrhosis. 4. Pseudomonas bacteremia, urinary tract infection, and pneumonia. 5. Methicillin-resistant Staphylococcus aureus sputum/I believe pleural effusions as well. 6. Non-Hodgkin lymphoma, status post abdominal surgery. 7. Anemia. Unit #: [id number] #: [id number] Patient: LENKA HERNÁNDEZ 8. Acidosis. The patient has a non-anion gap metabolic acidosis with fairly well compensated respiratory lara. Agree with starting her on some p.o. bicarbonate. 9. Diabetes mellitus. 10. History of atrial fibrillation. Dictated by.Madhu Farley M.D. MICHELLE/christine TD: 08/05/2016 20:48 JOB #: [id number] CONSULTATION REPORT Page 1 of 1 X Luz Farley MD X CONSULTATION REPORT
--- NOTE | ~2016-07-27 | CO ---
Unit #: [id number] #: [id number] Patient: LENKA HERNÁNDEZ [id number] [address] [place], [place] [address] [id number] I MR#: [id number] NAME: LENKA HERNÁNDEZ ROOM: [facility] Age: 76 Sex: F Admission Date: 07/27/2016 : 1940 Attending Physician: Weston Mabry M.D. Primary Care Physician: Octavio Cedeño M.D. Consultation Date: 07/29/2016 CONSULTATION REPORT REASON FOR CONSULTATION Atrial fibrillation. HISTORY OF PRESENT ILLNESS The patient is a 76-year-old white female, who was admitted to the hospital on 07/27/2016 with a diagnosis of fever, respiratory insufficiency, and pneumonia. She was seen in the emergency room, because of delirium, leukocytosis after having been a resident of local penitentiary for about 2 weeks. She was found to have evidence of acute kidney injury, left lower lobe retrocardiac pneumonia on CT scan of the chest and was started on intravenous Zosyn, vancomycin, intravenous fluids, and on the morning of 07/28/2016, she was noted to be delirious with low-grade fever, markedly elevated white blood count of 28,000, hyponatremia, hypokalemia and low magnesium level. She was thought to be have sepsis. She was evaluated by [facility] and Dr. Barlow from [facility] and moved to the intensive care unit. She was found to have periods of atrial fibrillation, for which we were asked to see her. The patient is alert and awake at the time of this examination and interview and denies any chest pains. She has not had any cardiac abnormalities in the past that she is aware of. She has never been told to have a regular heartbeat, hypertension, or myocardial infarction. There is no history of previous strokes or transient ischemic attacks. She lives with her son and was able to make her own bed, do a little bit of cooking etc., without any difficulty. She had denied any ankle edema, orthopnea, or nocturnal dyspnea. She gives a history of having had panic attacks when she would awaken 2 or 3 hours after having gone to bed with sudden onset of shortness of breath, palpitations, diaphoresis, and after 15 to 30 minutes would go back to sleep. She has never been evaluated for cardiac abnormalities. The patient had a prolonged stay at [facility] from 06/16/2016 to 07/16/2016, when she had presented to [facility] with hematemesis and underwent vertical partial gastrectomy, splenectomy, removal of a mass from the distal pancreas. She had a prolonged postoperative course and had a PEG tube inserted, but she had started eating on her own volition in the recent past. In a penitentiary over the last 2 weeks, she had complained of occasional fevers and cough. PAST MEDICAL HISTORY 1. Includes cirrhosis of liver, diagnosis made on CBC and liver biopsy. 2. History are non-Hodgkin lymphoma recently diagnosed. 3. Autoimmune hemolytic anemia. Unit #: [id number] #: [id number] Patient: LENKA HERNÁNDEZ 4. Ncp-cvyiscy-zorfgtbtj diabetes mellitus. 5. Hyperlipidemia. 6. History of lupus erythematosus. 7. History of uterine cancer with hysterectomy. 8. History of skin cancer. 9. Chronic obstructive pulmonary disease. SOCIAL AND PERSONAL HISTORY She used to smoke a pack and a half to 2 packs of cigarettes a day and has a total smoking history of close to 70 pack years. She has never used alcohol. FAMILY HISTORY Her father of a malignancy, her mother had a permanent pacemaker inserted at age 60 and her siblings are alive and healthy. PHYSICAL EXAMINATION GENERAL: Reveals a middle-aged female, in no acute cardiorespiratory distress, is lying comfortably in bed. VITAL SIGNS: Has a temperature of 99.1 degrees Fahrenheit, heart rate is 100 beats per minute and regular with rare ectopic beats. HEENT: Unremarkable, there is no jugular venous distention. Carotid upstrokes are normal without any bruits. Pedal pulses are absent, there is no ankle edema. CARDIAC: Shows apical impulse is palpable in fifth intercostal space and midclavicular line and is normal, both heart sounds are normal. No rubs or clicks are audible, there is no murmur. CHEST: Shows diminished breath sounds in both lung hopson, which is normal to palpation and percussion. No rales or rhonchi are noted. ABDOMEN: Shows anterior abdominal wall is covered in a sterile dressing. There is mild tenderness in the left lower quadrant of abdomen. There are no masses or organomegaly. Bowel sounds are present though infrequent. RECTAL: Not done. STATUS CONTROLLER: Shows the patient is alert and awake, moving all 4 extremities. Sensory system examination was not performed. DIAGNOSTIC STUDIES IMAGING STUDIES: Chest x-ray shows normal size heart, mild increased interstitial markings in the lower lung hopson. CT scan of the chest shows retrocardiac left lower lobe pneumonia. LABORATORY RESULTS: Blood cultures so far have been negative. Hemoglobin is 9.3 g, hematocrit 29.8, 22,500 white cells are seen with a platelet count of 334,000. Serum creatinine was 2.1, at that time of admission is 1.5. On 07/29/2016, BUN is 23, glucose 151, sodium is 128 mEq/L today, but was 121 on 07/27/2016, potassium is 3.1 mEq/L, magnesium 1.4. Liver function studies are normal, TSH is 1.67. Lactic acid is 1.0. CARDIOVASCULAR STUDIES: Rhythm strips revealed underlying normal sinus rhythm with short periods of atrial fibrillation with a rapid ventricular response, 12-lead EKG is not available for review. DIAGNOSES 1. Paroxysmal atrial fibrillation, probably of recent onset, and normal sinus rhythm. 2. Severe chronic obstructive pulmonary disease. 3. Severe hypokalemia. 4. Hypomagnesemia. Unit #: [id number] #: [id number] Patient: LENKA HERNÁNDEZ 5. Left lower lobe pneumonia. 6. Non-Hodgkin lymphoma. 7. Status post partial pancreatectomy, vertical hemigastrectomy, splenectomy in 06/2016. 8. History of hemolytic autoimmune anemia. 9. Cirrhosis of liver. 10. History of respiratory failure. 11. Diabetes mellitus. PLAN 1. The patient has already been started on intravenous fluids containing potassium and magnesium, which would be continued to replenish electrolytes. 2. Intravenous Cardizem would be started in an attempt to maintain normal sinus rhythm and reduce the risk of peripheral embolization with paroxysmal atrial fibrillation. 3. I think the major part of atrial fibrillation is related to her underlying severe chronic obstructive pulmonary disease. 4. History of panic attacks during the night associated with diaphoresis and palpitations are bothersome as it may be a manifestation of angina-equivalent dyspnea, but that workup would have to wait till her present infectious processes is treated. The patient has already stopped smoking and is encouraged to continue abstinence from nicotine. Echocardiogram if done at [facility] would be reviewed. I do not suspect any structural abnormalities in the heart on clinical basis and detailed workup for ischemic heart disease if any would be postponed for the time being. We will follow the patient with you. Thank you very much for associating us in the care of Ms. Pimentel. Dictated by... Ashley Eid/christine TD: 07/29/2016 23:24 JOB #: [id number] CONSULTATION REPORT Page 1 of 1 X Eliseo Mcclendon MD CONSULTATION REPORT
--- NOTE | ~2016-07-27 | MAL ---
[facility] Nutrition Therapy DATE: 07/28/16 Patient: LENKA HERNÁNDEZ Physician: JOHN Address: [address] [facility] Room/Bed: [address], Zip: [place] [id number] Admit Date: 07/27/16 Date of : [birth year] Height: 5 4 Weight: 208 94.5 PHYSICAL MALNUTRITION ASSESSMENT Energy Intake, Chronic Illness Severely reduced: </=50% needs for >/=1 month Energy Intake Comment: Weight Loss, Chronic Illness Severe: >5% past 1 month Weight Loss, Comment: ~35# weight loss since 06/16/16 reported by the pt's daughter (14% weight loss in 1.5 months). Physical Findings Functional Capacity Severe: (obvious) bedridden or otherwise significantly reduced functional capacity Physical Findings Fluid Accumulation Severe: (obvious) increased fluid/edema Physical Findings Comment: Edema noted in nutrition assessment. Pt has reduced functional capacity, as made evident by her lethargy. Malnutrition Survey Results: Malnutrition identified Malnutrition Etiology Summary: Chronic illness severe Malnutrition Survey Comment: Severe PCM identified. See RD nutrition assessment for further details. Respectfully, SERAFIN FLORES RD, LD [facility] cc: client file
--- NOTE | ~2016-07-27 | CR71 ---
[facility] A Service of [facility] RADIOLOGY TEXT RESULTS PATIENT: LENKA HERNÁNDEZ LOCATION: [address] : [birth year] UNIT #: [id number] AGE: [address]: Weston Mabry MD SEX: F ORDER DR: [id number] [facility] [address] [facility] [place], [place] [address] [id number] I MR#: [id number] Acc #: [id number] NAME: LENKA HERNÁNDEZ : 1940 SEX: F STUDY DATE/TIME: 07/30/2016 13:24 UNIT: [facility] ROOM: [facility] STUDY DESCRIPTION: CR Chest Single View Attending Physician: Weston Mabry M.D. Ordering Physician: Dominique Barros M.D. Primary Care Physician: Octavio Cedeño M.D. MEDICAL IMAGING REPORT This report is preliminary unless electronic signature is present EXAM Frontal chest 07/30/2016. INDICATIONS Status post thoracentesis, pneumonia, pain. TECHNIQUE Frontal chest was performed. COMPARISON 03:19 hours FINDINGS Right-sided central line from a neck approach unchanged. Cardiac silhouette enlarged but stable. There is mild vascular congestion and interstitial edema. Probable combination of trace effusions and atelectasis in the lung bases. No pneumothorax. IMPRESSION No pneumothorax. Probable trace amount of pleural fluid and atelectasis in the lung bases. Overall volume of pleural fluid on the left has decreased since the prior study. Dictated by... Lorne Knapp M.D. THIS IS AN ELECTRONICALLY VERIFIED REPORT Lorne Knapp M.D. at 07/30/2016 4:32 PM OLGA/geraldo TD: 07/30/2016 15:50 JOB #: [id number] [facility] A Service [facility] RADIOLOGY TEXT RESULTS PATIENT: LENKA HERNÁNDEZ LOCATION: [address] : [birth year] UNIT #: [id number] AGE: [address]: Weston Mabry MD SEX: F ORDER DR: MEDICAL IMAGING REPORT Page 1 of 1 COPY
[2016-07-27 19:10] LABS: POC - CKMB 1.3 ng/mL (0.0-7.9); POC - TROPONIN <0.05 ng/mL (<=0.05)
[2016-07-27 20:08] LABS: BASOPHIL# 0.1 X10e3 (0-0.3); BASOPHIL% 0.3 % (0-2.5); EOSINOPHIL# 0.1 X10e3 (0-0.7); EOSINOPHIL% 0.7 % (0.0-7.0); HEMATOCRIT 33.6 % (35.0-45.0); HEMOGLOBIN 10.8 gm/dL (12.0-16.0); LYMPHOCYTE# 1.4 X10e3 (1.0-3.5); LYMPHOCYTE% 6.3 % (17.0-45.0); MEAN CELL VOLUME 86.3 FL (83-96); MEAN CORPUSCULAR HEMOGLOBIN 27.7 PG (28-34); MEAN CORPUSCULAR HGB CONC 32.1 g/dL (30-36); MEAN PLATELET VOLUME 9.6 FL (6.5-11.5); MONOCYTE# 2.5 X10e3 (0-1.0); MONOCYTE% 11.8 % (3.0-12.0); NEUTROPHIL# 17.5 X10e3 (1.5-7.1); NEUTROPHIL% 80.9 % (40-75); PLATELET COUNT 438 X10e3 (140-420); RED BLOOD COUNT 3.89 X10e (3.90-5.30); RED CELL DISTRIBUTION WIDTH 16.5 % (11.0-15.5); WHITE BLOOD COUNT 21.7 X10e3 (4.0-10.5)
[2016-07-27 20:16] LABS: DIFF IND YES
[2016-07-27 20:40] LABS: BUN/CREATININE RATIO 13.8; CALCIUM SERUM 8.2 mg/dL (8.4-10.2); CREATININE SERUM 2.1 mg/dL (0.6-1.4); GLOM FILT RATE Estimated 22.6 mL/min (>60); POTASSIUM 3.6 mmol/L (3.5-5.1)
[2016-07-27 20:42] LABS: PLATELET ESTIMATE NORMAL (NORMAL); RBC NORMAL YES
[2016-07-27] MEDS ORDERED: MIDODRINE HCL2.5 MG PO (20:54)
[2016-07-27] MEDS ORDERED: FLAGYL PO (20:56)
[2016-07-27] MEDS ORDERED: ONDANSETRON HCL8 MG PO (21:34)
[2016-07-27] MEDS ORDERED: POLYETHYLENE GL17 GM PO (21:35)
[2016-07-27] MEDS ORDERED: FENOFIBRATE160 MG PO (21:36)
[2016-07-27] MEDS ORDERED: ONE DAILY MULT1 EAC2 PO (21:37)
[2016-07-27] MEDS ORDERED: FUROSEMIDE40 MG PO (21:38)
[2016-07-27] MEDS ORDERED: CIPRO250 M1 PO (21:39)
[2016-07-27] MEDS ORDERED: MELATONIN5 M1 PO (21:39)
[2016-07-27] MEDS ORDERED: TUSSIN DM SYRU118 ML PO (21:40)
[2016-07-27] MEDS ORDERED: MILK OF MAGNESIA PO (21:41)
[2016-07-27] MEDS ORDERED: [UNRECOGNIZED DRUG - REMARK] TOP (21:43)
[2016-07-27] MEDS ORDERED: HYDROCODON-ACE1 EAC7 PO (21:49)
[2016-07-27] MEDS ORDERED: PHENERGAN25 M1 PO (21:49)
[2016-07-27] MEDS ORDERED: NOVOLOG100 U/ML (21:51)
[2016-07-27] MEDS ORDERED: LANTUS100 U/ML SUBQ (21:52)
[2016-07-28 07:01] LABS: BASOPHIL# 0.2 X10e3 (0-0.3); BASOPHIL% 0.7 % (0-2.5); DIFF IND NO; EOSINOPHIL# 0.1 X10e3 (0-0.7); EOSINOPHIL% 0.2 % (0.0-7.0); HEMATOCRIT 31.5 % (35.0-45.0); HEMOGLOBIN 9.8 gm/dL (12.0-16.0); LYMPHOCYTE# 1.2 X10e3 (1.0-3.5); LYMPHOCYTE% 4.4 % (17.0-45.0); MEAN CELL VOLUME 88.2 FL (83-96); MEAN CORPUSCULAR HEMOGLOBIN 27.5 PG (28-34); MEAN CORPUSCULAR HGB CONC 31.2 g/dL (30-36); MEAN PLATELET VOLUME 9.9 FL (6.5-11.5); MONOCYTE# 2.8 X10e3 (0-1.0); NEUTROPHIL# 23.9 X10e3 (1.5-7.1); NEUTROPHIL% 84.7 % (40-75); PLATELET COUNT 378 X10e3 (140-420); RED BLOOD COUNT 3.57 X10e (3.90-5.30); RED CELL DISTRIBUTION WIDTH 16.8 % (11.0-15.5); WHITE BLOOD COUNT 28.2 X10e3 (4.0-10.5)
[2016-07-28 07:36] LABS: ALBUMIN SERUM 2.4 g/dL (3.5-5.0); BUN/CREATININE RATIO 13.18; CALCIUM SERUM 7.8 mg/dL (8.4-10.2); CREATININE SERUM 2.2 mg/dL (0.6-1.4); GLOM FILT RATE Estimated 21.4 mL/min (>60); POTASSIUM 3.3 mmol/L (3.5-5.1); PROTEIN TOTAL SERUM 6.1 g/dL (6.0-8.3)
[2016-07-28 11:07] LABS: ARTERIAL BLOOD GAS CARBOXY HB 1.1 %sat (0.0-9.0); ARTERIAL BLOOD GAS HCO3 25.1 mmol/L; ARTERIAL BLOOD GAS MET HB 0.6 %sat (0.0-2.0); ARTERIAL BLOOD GAS PCO2 39.1 mmHg (35.0-45.0); ARTERIAL BLOOD GAS pH 7.415 (7.350-7.450)
[2016-07-28 11:08] LABS: ARTERIAL BLOOD GAS ALLEN TEST NORMAL; ARTERIAL BLOOD GAS ART SITE RIGHT RADIAL; ARTERIAL BLOOD GAS DELIVERY NASAL CANNULA; ARTERIAL BLOOD GAS PO2 72.3 mmHg (80.0-100); ARTERIAL DRAW? YES
[2016-07-28 12:16] LABS: INR 1.7; PARTIAL THROMBOPLASTIN TIME 47.5 SECONDS (23.5-31.3); PROTHROMBIN TIME (PATIENT) 18.5 SECONDS (9.6-11.5)
[2016-07-28 12:28] LABS: URINE SOURCE CLEAN CATCH
[2016-07-28 12:45] LABS: URINE APPEARANCE CLOUDY; URINE BILIRUBIN NEG (NEG); URINE BLOOD 3+ (NEG); URINE COLOR YELLOW; URINE GLUCOSE NEG (NEG); URINE KETONE NEG (NEG); URINE LEUKOCYTE ESTERASE 3+ (NEG); URINE NITRATE NEG (NEG); URINE PROTEIN NEG (NEG); URINE SPECIFIC GRAVITY 1.005 (1.003-1.035); URINE UROBILINOGEN 0.2 MG/DL (NEG)
[2016-07-28 12:48] LABS: URINE BACTERIA AUWI 1+ (NEGATIVE); URINE SQUAMOUS EPITHELIAL CELL NONE SEEN /[HPF]; UWBCS1 AUWI INNUM (0-5)
[2016-07-28 13:08] LABS: CREATININE,RANDOM URINE 20 mg/dL; POTASSIUM,URINE RANDOM 9 mmol/L; SODIUM URINE RANDOM 32 mmol/L
[2016-07-29 04:13] LABS: ARTERIAL BLD GAS O2 SATURATION 91.7 % (90.0-100.0); ARTERIAL BLOOD GAS HCO3 22.9 mmol/L; ARTERIAL BLOOD GAS MET HB 0.3 %sat (0.0-2.0); ARTERIAL BLOOD GAS PCO2 33.2 mmHg (35.0-45.0); ARTERIAL BLOOD GAS pH 7.447 (7.350-7.450)
[2016-07-29 04:24] LABS: ARTERIAL BLOOD GAS ALLEN TEST NORMAL; ARTERIAL BLOOD GAS ART SITE LEFT RADIAL; ARTERIAL BLOOD GAS DELIVERY NASAL CANNULA; ARTERIAL BLOOD GAS PO2 57.4 mmHg (80.0-100); ARTERIAL DRAW? YES
[2016-07-29 06:04] LABS: HEMATOCRIT 29.8 % (35.0-45.0); HEMOGLOBIN 9.3 gm/dL (12.0-16.0); MEAN CELL VOLUME 87.6 FL (83-96); MEAN CORPUSCULAR HEMOGLOBIN 27.2 PG (28-34); MEAN CORPUSCULAR HGB CONC 31.1 g/dL (30-36); RED BLOOD COUNT 3.41 X10e (3.90-5.30); RED CELL DISTRIBUTION WIDTH 17.1 % (11.0-15.5); WHITE BLOOD COUNT 22.5 X10e3 (4.0-10.5)
[2016-07-29 06:41] LABS: ALBUMIN SERUM 3.4 g/dL (3.5-5.0); BILIRUBIN,TOTAL 1.2 mg/dL (0.2-2.0); BUN/CREATININE RATIO 15.33; CREATININE SERUM 1.5 mg/dL (0.6-1.4); POTASSIUM 3.1 mmol/L (3.5-5.1)
[2016-07-30 04:47] LABS: BASOPHIL# 0.1 X10e3 (0-0.3); BASOPHIL% 0.6 % (0-2.5); EOSINOPHIL# 0.3 X10e3 (0-0.7); EOSINOPHIL% 1.2 % (0.0-7.0); HEMATOCRIT 31.9 % (35.0-45.0); HEMOGLOBIN 9.9 gm/dL (12.0-16.0); LYMPHOCYTE# 1.8 X10e3 (1.0-3.5); LYMPHOCYTE% 8.2 % (17.0-45.0); MEAN CELL VOLUME 87.2 FL (83-96); MEAN CORPUSCULAR HEMOGLOBIN 27.2 PG (28-34); MEAN CORPUSCULAR HGB CONC 31.2 g/dL (30-36); MEAN PLATELET VOLUME 9.4 FL (6.5-11.5); MONOCYTE# 2.8 X10e3 (0-1.0); MONOCYTE% 12.5 % (3.0-12.0); NEUTROPHIL# 17.2 X10e3 (1.5-7.1); NEUTROPHIL% 77.5 % (40-75); PLATELET COUNT 337 X10e3 (140-420); RED BLOOD COUNT 3.66 X10e (3.90-5.30); RED CELL DISTRIBUTION WIDTH 17.1 % (11.0-15.5); WHITE BLOOD COUNT 22.2 X10e3 (4.0-10.5)
[2016-07-30 04:51] LABS: DIFF IND NO
[2016-07-30 04:52] LABS: ARTERIAL BLD GAS O2 SATURATION 94.4 % (90.0-100.0); ARTERIAL BLOOD GAS CARBOXY HB 1.2 %sat (0.0-9.0); ARTERIAL BLOOD GAS HCO3 22.3 mmol/L; ARTERIAL BLOOD GAS MET HB 0.8 %sat (0.0-2.0); ARTERIAL BLOOD GAS PCO2 33.2 mmHg (35.0-45.0); ARTERIAL BLOOD GAS pH 7.436 (7.350-7.450)
[2016-07-30 04:55] LABS: ARTERIAL BLOOD GAS ART SITE RIGHT BRACHIAL; ARTERIAL BLOOD GAS DELIVERY NASAL CANNULA; ARTERIAL BLOOD GAS PO2 76.1 mmHg (80.0-100); ARTERIAL DRAW? YES
[2016-07-30 05:09] LABS: ALBUMIN SERUM 2.7 g/dL (3.5-5.0); BILIRUBIN,TOTAL 1.2 mg/dL (0.2-2.0); BUN/CREATININE RATIO 15.45; CALCIUM SERUM 7.9 mg/dL (8.4-10.2); CREATININE SERUM 1.1 mg/dL (0.6-1.4); GLOM FILT RATE Estimated 49.4 mL/min (>60); POTASSIUM 3.7 mmol/L (3.5-5.1); PROTEIN TOTAL SERUM 5.4 g/dL (6.0-8.3)
[2016-07-30 10:31] LABS: INR 1.7; PARTIAL THROMBOPLASTIN TIME 44.8 SECONDS (23.5-31.3); PROTHROMBIN TIME (PATIENT) 18.8 SECONDS (9.6-11.5)
[2016-07-30 15:22] LABS: BODY FLUID SOURCE PLEURAL
[2016-07-30 15:24] LABS: BODY FLUID APPEARANCE HAZY
[2016-07-31 05:16] LABS: BASOPHIL# 0.1 X10e3 (0-0.3); EOSINOPHIL# 0.6 X10e3 (0-0.7); EOSINOPHIL% 4.2 % (0.0-7.0); HEMATOCRIT 27.5 % (35.0-45.0); HEMOGLOBIN 8.8 gm/dL (12.0-16.0); LYMPHOCYTE# 1.9 X10e3 (1.0-3.5); LYMPHOCYTE% 12.7 % (17.0-45.0); MEAN CELL VOLUME 86.6 FL (83-96); MEAN CORPUSCULAR HEMOGLOBIN 27.7 PG (28-34); MEAN PLATELET VOLUME 9.5 FL (6.5-11.5); MONOCYTE# 1.6 X10e3 (0-1.0); NEUTROPHIL# 10.7 X10e3 (1.5-7.1); NEUTROPHIL% 71.1 % (40-75); PLATELET COUNT 309 X10e3 (140-420); RED BLOOD COUNT 3.18 X10e (3.90-5.30); RED CELL DISTRIBUTION WIDTH 16.9 % (11.0-15.5)
[2016-07-31 05:18] LABS: DIFF IND NO
[2016-07-31 06:05] LABS: ALBUMIN SERUM 2.3 g/dL (3.5-5.0); BILIRUBIN,TOTAL 0.6 mg/dL (0.2-2.0); CALCIUM SERUM 7.7 mg/dL (8.4-10.2); GLOM FILT RATE Estimated 55.5 mL/min (>60); MAGNESIUM 2.1 mg/dL (1.6-3.0); POTASSIUM 3.8 mmol/L (3.5-5.1)
[2016-08-01 06:02] LABS: HEMATOCRIT 27.8 % (35.0-45.0); HEMOGLOBIN 8.6 gm/dL (12.0-16.0); MEAN CELL VOLUME 87.1 FL (83-96); MEAN CORPUSCULAR HEMOGLOBIN 27.1 PG (28-34); MEAN CORPUSCULAR HGB CONC 31.1 g/dL (30-36); MEAN PLATELET VOLUME 9.2 FL (6.5-11.5); RED BLOOD COUNT 3.19 X10e (3.90-5.30); RED CELL DISTRIBUTION WIDTH 16.9 % (11.0-15.5); WHITE BLOOD COUNT 13.1 X10e3 (4.0-10.5)
[2016-08-01 07:16] LABS: ALBUMIN SERUM 2.2 g/dL (3.5-5.0); BILIRUBIN,TOTAL 0.8 mg/dL (0.2-2.0); CALCIUM SERUM 7.9 mg/dL (8.4-10.2); CREATININE SERUM 0.8 mg/dL (0.6-1.4); GLOM FILT RATE Estimated 72.7 mL/min (>60); MAGNESIUM 2.1 mg/dL (1.6-3.0); PHOSPHOROUS 2.8 mg/dL (2.5-4.6); POTASSIUM 4.1 mmol/L (3.5-5.1)
[2016-08-02 08:28] LABS: BASOPHIL# 0.2 X10e3 (0-0.3); BASOPHIL% 1.1 % (0-2.5); DIFF IND YES; EOSINOPHIL# 0.9 X10e3 (0-0.7); LYMPHOCYTE# 2.1 X10e3 (1.0-3.5); LYMPHOCYTE% 13.7 % (17.0-45.0); MEAN CELL VOLUME 88.9 FL (83-96); MEAN CORPUSCULAR HEMOGLOBIN 27.7 PG (28-34); MEAN CORPUSCULAR HGB CONC 31.1 g/dL (30-36); MEAN PLATELET VOLUME 9.2 FL (6.5-11.5); MONOCYTE# 1.8 X10e3 (0-1.0); MONOCYTE% 12.1 % (3.0-12.0); NEUTROPHIL# 10.2 X10e3 (1.5-7.1); NEUTROPHIL% 67.1 % (40-75); PLATELET COUNT 389 X10e3 (140-420); RED BLOOD COUNT 3.26 X10e (3.90-5.30); RED CELL DISTRIBUTION WIDTH 17.1 % (11.0-15.5); WHITE BLOOD COUNT 15.1 X10e3 (4.0-10.5)
[2016-08-02 08:44] LABS: ANISOCYTOSIS SL; HYPOCHROMIA SL; PLATELET ESTIMATE NORMAL (NORMAL); TARGET CELLS SL
[2016-08-02 09:05] LABS: ALBUMIN SERUM 2.2 g/dL (3.5-5.0); BILIRUBIN,TOTAL 0.6 mg/dL (0.2-2.0); BUN/CREATININE RATIO 10.76; CALCIUM SERUM 8.3 mg/dL (8.4-10.2); CREATININE SERUM 1.3 mg/dL (0.6-1.4); GLOM FILT RATE Estimated 40.4 mL/min (>60); MAGNESIUM 2.6 mg/dL (1.6-3.0); PHOSPHOROUS 4.5 mg/dL (2.5-4.6); POTASSIUM 4.5 mmol/L (3.5-5.1); PROTEIN TOTAL SERUM 5.2 g/dL (6.0-8.3)
[2016-08-02 16:31] LABS: ARTERIAL BLOOD GAS CARBOXY HB 0.7 %sat (0.0-9.0); ARTERIAL BLOOD GAS MET HB 0.4 %sat (0.0-2.0); ARTERIAL BLOOD GAS PO2 80.9 mmHg (80.0-100)
[2016-08-02 16:32] LABS: ARTERIAL BLOOD GAS ALLEN TEST NORMAL; ARTERIAL BLOOD GAS ART SITE RIGHT RADIAL; ARTERIAL BLOOD GAS DELIVERY NASAL CANNULA; ARTERIAL BLOOD GAS PCO2 74.4 mmHg (35.0-45.0); ARTERIAL BLOOD GAS pH 7.079 (7.350-7.450); ARTERIAL DRAW? YES
[2016-08-02 17:46] LABS: ARTERIAL BLD GAS O2 SATURATION 98.4 % (90.0-100.0); ARTERIAL BLOOD GAS CARBOXY HB 0.5 %sat (0.0-9.0); ARTERIAL BLOOD GAS HCO3 20.5 mmol/L; ARTERIAL BLOOD GAS MET HB 0.8 %sat (0.0-2.0)
[2016-08-02 17:47] LABS: ARTERIAL BLOOD GAS ART SITE RIGHT BRACHIAL; ARTERIAL BLOOD GAS DELIVERY BIPAP 14/5; ARTERIAL BLOOD GAS PCO2 54.9 mmHg (35.0-45.0); ARTERIAL DRAW? YES
[2016-08-03 04:43] LABS: HEMATOCRIT 27.1 % (35.0-45.0); HEMOGLOBIN 8.3 gm/dL (12.0-16.0); MEAN CELL VOLUME 89.4 FL (83-96); MEAN CORPUSCULAR HEMOGLOBIN 27.5 PG (28-34); MEAN CORPUSCULAR HGB CONC 30.7 g/dL (30-36); RED BLOOD COUNT 3.03 X10e (3.90-5.30); RED CELL DISTRIBUTION WIDTH 16.9 % (11.0-15.5); WHITE BLOOD COUNT 12.4 X10e3 (4.0-10.5)
[2016-08-03 05:09] LABS: CREATININE SERUM 1.7 mg/dL (0.6-1.4); GLOM FILT RATE Estimated 29.2 mL/min (>60); POTASSIUM 4.6 mmol/L (3.5-5.1)
[2016-08-03 09:45] LABS: ARTERIAL BLD GAS O2 SATURATION 97.4 % (90.0-100.0); ARTERIAL BLOOD GAS CARBOXY HB 0.4 %sat (0.0-9.0); ARTERIAL BLOOD GAS HCO3 18.5 mmol/L; ARTERIAL BLOOD GAS MET HB 0.9 %sat (0.0-2.0); ARTERIAL BLOOD GAS pH 7.344 (7.350-7.450)
[2016-08-03 09:46] LABS: ARTERIAL BLOOD GAS ALLEN TEST N; ARTERIAL BLOOD GAS ART SITE LEFT RADIAL; ARTERIAL BLOOD GAS DELIVERY BIPAP; ARTERIAL DRAW? YES
[2016-08-03 09:47] LABS: ARTERIAL BLOOD GAS VENT MODE 14/5
[2016-08-03 17:01] LABS: BUN/CREATININE RATIO 8.94; CALCIUM SERUM 8.1 mg/dL (8.4-10.2); CREATININE SERUM 1.9 mg/dL (0.6-1.4); GLOM FILT RATE Estimated 25.5 mL/min (>60); POTASSIUM 4.3 mmol/L (3.5-5.1)
[2016-08-04 04:12] LABS: ARTERIAL BLD GAS O2 SATURATION 98.4 % (90.0-100.0); ARTERIAL BLOOD GAS CARBOXY HB 0.5 %sat (0.0-9.0); ARTERIAL BLOOD GAS HCO3 16.4 mmol/L; ARTERIAL BLOOD GAS MET HB 0.9 %sat (0.0-2.0); ARTERIAL BLOOD GAS PCO2 30.7 mmHg (35.0-45.0); ARTERIAL BLOOD GAS pH 7.337 (7.350-7.450)
[2016-08-04 04:20] LABS: ARTERIAL BLOOD GAS ALLEN TEST NORMAL; ARTERIAL BLOOD GAS ART SITE RIGHT RADIAL; ARTERIAL DRAW? YES
[2016-08-04 04:21] LABS: ARTERIAL BLOOD GAS DELIVERY BIPAP 14/5
[2016-08-04 05:43] LABS: BASOPHIL# 0.1 X10e3 (0-0.3); EOSINOPHIL# 0.7 X10e3 (0-0.7); EOSINOPHIL% 5.4 % (0.0-7.0); HEMATOCRIT 28.6 % (35.0-45.0); HEMOGLOBIN 8.9 gm/dL (12.0-16.0); LYMPHOCYTE# 2.7 X10e3 (1.0-3.5); LYMPHOCYTE% 21.4 % (17.0-45.0); MEAN CELL VOLUME 88.6 FL (83-96); MEAN CORPUSCULAR HEMOGLOBIN 27.7 PG (28-34); MEAN CORPUSCULAR HGB CONC 31.2 g/dL (30-36); MEAN PLATELET VOLUME 9.1 FL (6.5-11.5); MONOCYTE# 1.7 X10e3 (0-1.0); MONOCYTE% 13.5 % (3.0-12.0); NEUTROPHIL# 7.3 X10e3 (1.5-7.1); NEUTROPHIL% 58.7 % (40-75); PLATELET COUNT 455 X10e3 (140-420); RED BLOOD COUNT 3.23 X10e (3.90-5.30); RED CELL DISTRIBUTION WIDTH 17.6 % (11.0-15.5); WHITE BLOOD COUNT 12.5 X10e3 (4.0-10.5)
[2016-08-04 05:52] LABS: DIFF IND NO
[2016-08-04 06:20] LABS: ALBUMIN SERUM 2.1 g/dL (3.5-5.0); BILIRUBIN,TOTAL 0.6 mg/dL (0.2-2.0); BUN/CREATININE RATIO 8.57; CREATININE SERUM 2.1 mg/dL (0.6-1.4); GLOM FILT RATE Estimated 22.6 mL/min (>60); MAGNESIUM 2.8 mg/dL (1.6-3.0); POTASSIUM 4.5 mmol/L (3.5-5.1)
[2016-08-04 14:13] LABS: BF TOTAL NUCLEATED CELL COUNT 575 CMM (0-100); BODY FLUID APPEARANCE HAZY; BODY FLUID RBC <10000 CMM; BODY FLUID SOURCE PLEURAL
[2016-08-05 04:07] LABS: ARTERIAL BLD GAS O2 SATURATION 99.9 % (90.0-100.0); ARTERIAL BLOOD GAS CARBOXY HB 0.5 %sat (0.0-9.0); ARTERIAL BLOOD GAS HCO3 15.2 mmol/L; ARTERIAL BLOOD GAS PCO2 27.8 mmHg (35.0-45.0); ARTERIAL BLOOD GAS pH 7.346 (7.350-7.450)
[2016-08-05 04:15] LABS: ARTERIAL BLOOD GAS ALLEN TEST NORMAL; ARTERIAL BLOOD GAS ART SITE RIGHT RADIAL; ARTERIAL BLOOD GAS DELIVERY BIPAP 14/5; ARTERIAL DRAW? YES
[2016-08-05 05:22] LABS: BASOPHIL# 0.1 X10e3 (0-0.3); BASOPHIL% 1.2 % (0-2.5); EOSINOPHIL# 0.6 X10e3 (0-0.7); HEMOGLOBIN 8.9 gm/dL (12.0-16.0); LYMPHOCYTE# 2.7 X10e3 (1.0-3.5); LYMPHOCYTE% 22.8 % (17.0-45.0); MEAN CELL VOLUME 88.6 FL (83-96); MEAN CORPUSCULAR HEMOGLOBIN 27.1 PG (28-34); MEAN CORPUSCULAR HGB CONC 30.6 g/dL (30-36); MEAN PLATELET VOLUME 8.6 FL (6.5-11.5); MONOCYTE# 1.5 X10e3 (0-1.0); MONOCYTE% 12.9 % (3.0-12.0); NEUTROPHIL# 6.8 X10e3 (1.5-7.1); NEUTROPHIL% 58.1 % (40-75); PLATELET COUNT 506 X10e3 (140-420); RED BLOOD COUNT 3.27 X10e (3.90-5.30); RED CELL DISTRIBUTION WIDTH 17.5 % (11.0-15.5); WHITE BLOOD COUNT 11.8 X10e3 (4.0-10.5)
[2016-08-05 06:02] LABS: DIFF IND NO
[2016-08-05 06:38] LABS: BILIRUBIN,TOTAL 0.6 mg/dL (0.2-2.0); BUN/CREATININE RATIO 8.26; CALCIUM SERUM 8.3 mg/dL (8.4-10.2); CREATININE SERUM 2.3 mg/dL (0.6-1.4); GLOM FILT RATE Estimated 20.3 mL/min (>60); MAGNESIUM 2.6 mg/dL (1.6-3.0); POTASSIUM 3.9 mmol/L (3.5-5.1); PROTEIN TOTAL SERUM 5.6 g/dL (6.0-8.3)
[2016-08-06 04:12] LABS: ARTERIAL BLD GAS O2 SATURATION 94.9 % (90.0-100.0); ARTERIAL BLOOD GAS CARBOXY HB 0.7 %sat (0.0-9.0); ARTERIAL BLOOD GAS HCO3 17.3 mmol/L; ARTERIAL BLOOD GAS MET HB 0.9 %sat (0.0-2.0); ARTERIAL BLOOD GAS PCO2 38.9 mmHg (35.0-45.0); ARTERIAL BLOOD GAS PO2 83.6 mmHg (80.0-100); ARTERIAL BLOOD GAS pH 7.256 (7.350-7.450)
[2016-08-06 04:13] LABS: ARTERIAL BLOOD GAS ALLEN TEST NORMAL; ARTERIAL BLOOD GAS ART SITE RIGHT RADIAL; ARTERIAL BLOOD GAS DELIVERY NASAL CANNULA; ARTERIAL DRAW? YES
[2016-08-06 05:49] LABS: BASOPHIL# 0.2 X10e3 (0-0.3); BASOPHIL% 1.5 % (0-2.5); EOSINOPHIL# 0.6 X10e3 (0-0.7); EOSINOPHIL% 5.1 % (0.0-7.0); HEMATOCRIT 30.2 % (35.0-45.0); HEMOGLOBIN 9.2 gm/dL (12.0-16.0); LYMPHOCYTE# 1.9 X10e3 (1.0-3.5); LYMPHOCYTE% 17.3 % (17.0-45.0); MEAN CELL VOLUME 89.9 FL (83-96); MEAN CORPUSCULAR HEMOGLOBIN 27.5 PG (28-34); MEAN CORPUSCULAR HGB CONC 30.6 g/dL (30-36); MEAN PLATELET VOLUME 9.7 FL (6.5-11.5); MONOCYTE% 9.4 % (3.0-12.0); NEUTROPHIL# 7.4 X10e3 (1.5-7.1); NEUTROPHIL% 66.7 % (40-75); PLATELET COUNT 479 X10e3 (140-420); RED BLOOD COUNT 3.36 X10e (3.90-5.30); RED CELL DISTRIBUTION WIDTH 17.6 % (11.0-15.5)
[2016-08-06 05:55] LABS: DIFF IND NO
[2016-08-06 06:19] LABS: URINE APPEARANCE CLEAR; URINE BILIRUBIN NEG (NEG); URINE BLOOD 1+ (NEG); URINE COLOR YELLOW; URINE GLUCOSE 250 MG/DL (NEG); URINE KETONE NEG (NEG); URINE LEUKOCYTE ESTERASE TRACE (NEG); URINE NITRATE NEG (NEG); URINE PH 5.5 (5-8); URINE PROTEIN 1+ (NEG); URINE SPECIFIC GRAVITY 1.011 (1.003-1.035); URINE UROBILINOGEN 0.2 MG/DL (NEG)
[2016-08-06 06:22] LABS: CULTURE INDICATED? YES; URINE BACTERIA AUWI NEG (NEGATIVE); URINE SQUAMOUS EPITHELIAL CELL OCC /[HPF]
[2016-08-06 06:51] LABS: ALBUMIN SERUM 1.9 g/dL (3.5-5.0); BILIRUBIN,TOTAL 0.4 mg/dL (0.2-2.0); BUN/CREATININE RATIO 7.03; CALCIUM SERUM 8.4 mg/dL (8.4-10.2); CREATININE SERUM 2.7 mg/dL (0.6-1.4); GLOM FILT RATE Estimated 16.7 mL/min (>60); MAGNESIUM 2.4 mg/dL (1.6-3.0); PHOSPHOROUS 6.1 mg/dL (2.5-4.6); PROTEIN TOTAL SERUM 5.3 g/dL (6.0-8.3)
[2016-08-07 04:20] LABS: HEMATOCRIT 28.5 % (35.0-45.0); HEMOGLOBIN 8.9 gm/dL (12.0-16.0); MEAN CORPUSCULAR HEMOGLOBIN 27.9 PG (28-34); MEAN CORPUSCULAR HGB CONC 31.3 g/dL (30-36); MEAN PLATELET VOLUME 8.8 FL (6.5-11.5); RED BLOOD COUNT 3.2 X10e (3.90-5.30); RED CELL DISTRIBUTION WIDTH 17.6 % (11.0-15.5); WHITE BLOOD COUNT 7.6 X10e3 (4.0-10.5)
[2016-08-07 04:34] LABS: INR 1.6; PROTHROMBIN TIME (PATIENT) 16.7 SECONDS (9.6-11.5)
[2016-08-07 05:03] LABS: ALBUMIN SERUM 1.8 g/dL (3.5-5.0); ALKALINE PHOSPHATASE 93 U/L (32-92); ALT (SGPT) 11 U/L (10-40); AST (SGOT) 29 U/L (10-42); BILIRUBIN,TOTAL 0.6 mg/dL (0.2-2.0); BLOOD UREA NITROGEN 21 mg/dL (9-23); BUN/CREATININE RATIO 8.07; CALCIUM SERUM 8.2 mg/dL (8.4-10.2); CARBON DIOXIDE 20 mmol/L (22-31); CHLORIDE 108 mmol/L (100-111); CHOLESTEROL 74 mg/dL (0-200); CREATININE SERUM 2.6 mg/dL (0.6-1.4); GLOM FILT RATE Estimated 17.5 mL/min (>60); GLUCOSE FASTING 117 mg/dL (70-110); HDL CHOLESTEROL <5 mg/dL (35-95); IRON SERUM 44 ug/dL (28-170); LDL CHOLESTEROL 44 mg/dL (-130); LDL/HDL RATIO 8 RATIO (0-4); POTASSIUM 3.6 mmol/L (3.5-5.1); PROTEIN TOTAL SERUM 4.7 g/dL (6.0-8.3); SODIUM 135 mmol/L (135-145); TOTAL IRON BINDING CAPACITY 111 ug/dL (269-535); TRANSFERRIN 79 mg/dL (192-382); TRANSFERRIN SATURATION 40 % (20-50); TRIGLYCERIDES 123 mg/dL (10-160)
[2016-08-07 05:08] LABS: FERRITIN 158 ng/mL (11-307)
[2016-08-08 05:48] LABS: HEMATOCRIT 28.4 % (35.0-45.0); HEMOGLOBIN 8.9 gm/dL (12.0-16.0); MEAN CELL VOLUME 88.9 FL (83-96); MEAN CORPUSCULAR HEMOGLOBIN 27.7 PG (28-34); MEAN CORPUSCULAR HGB CONC 31.2 g/dL (30-36); MEAN PLATELET VOLUME 9.3 FL (6.5-11.5); RED BLOOD COUNT 3.2 X10e (3.90-5.30); RED CELL DISTRIBUTION WIDTH 17.6 % (11.0-15.5); WHITE BLOOD COUNT 6.9 X10e3 (4.0-10.5)
[2016-08-08 06:21] LABS: ALBUMIN SERUM 1.9 g/dL (3.5-5.0); BILIRUBIN,TOTAL 0.2 mg/dL (0.2-2.0); BUN/CREATININE RATIO 7.3; CALCIUM SERUM 8.3 mg/dL (8.4-10.2); CREATININE SERUM 2.6 mg/dL (0.6-1.4); GLOM FILT RATE Estimated 17.5 mL/min (>60); MAGNESIUM 1.8 mg/dL (1.6-3.0); POTASSIUM 3.3 mmol/L (3.5-5.1); PROTEIN TOTAL SERUM 5.2 g/dL (6.0-8.3)
[2016-08-09 06:26] LABS: HEMATOCRIT 28.2 % (35.0-45.0); MEAN CELL VOLUME 88.6 FL (83-96); MEAN CORPUSCULAR HEMOGLOBIN 28.2 PG (28-34); MEAN CORPUSCULAR HGB CONC 31.8 g/dL (30-36); MEAN PLATELET VOLUME 9.5 FL (6.5-11.5); RED BLOOD COUNT 3.19 X10e (3.90-5.30); WHITE BLOOD COUNT 7.7 X10e3 (4.0-10.5)
[2016-08-09 07:28] LABS: BILIRUBIN,TOTAL 0.3 mg/dL (0.2-2.0); BUN/CREATININE RATIO 7.4; CALCIUM SERUM 8.4 mg/dL (8.4-10.2); CREATININE SERUM 2.7 mg/dL (0.6-1.4); GLOM FILT RATE Estimated 16.7 mL/min (>60); POTASSIUM 3.9 mmol/L (3.5-5.1); PROTEIN TOTAL SERUM 5.3 g/dL (6.0-8.3)
== END 2016-08-09 18:36 | DRG 871 ==
LOC: CED 18:36 → CICCU2 22:13 → CEDOF 22:13 → C5B 23:35 → CICCU2 07-28 10:25 → C3A PCU 08-02 07:31 → CICCU2 08-02 18:24 → C3A PCU 08-05 23:33
PROVIDERS: Emergency Medicine; Family Medicine; Internal Medicine; Internal Medicine Hematology; Internal Medicine Nephrology; Internal Medicine Pulmonary Disease; Nurse Practitioner Family; Radiology Diagnostic Radiology
PROC: 30243J1 Transfusion of Nonautologous Serum Albumin into Central Vein, Percutaneous Approach (ICD-10-PCS; principal; 2016-07-28)
PROC: 05HM33Z Insertion of Infusion Device into Right Internal Jugular Vein, Percutaneous Approach (ICD-10-PCS; 2016-07-28)
PROC: B24BZZZ Ultrasonography of Heart with Aorta (ICD-10-PCS; 2016-07-29)
PROC: 0W9B3ZZ Drainage of Left Pleural Cavity, Percutaneous Approach (ICD-10-PCS; 2016-07-30)
PROC: 05HD33Z Insertion of Infusion Device into Right Cephalic Vein, Percutaneous Approach (ICD-10-PCS; 2016-08-09)
PROC: B54MZZA Ultrasonography of Right Upper Extremity Veins, Guidance (ICD-10-PCS; 2016-08-09)
DX: A41.52 Sepsis due to Pseudomonas (principal); J15.212 Pneumonia due to Methicillin resistant Staphylococcus aureus; N17.0 Acute kidney failure with tubular necrosis; R65.21 Severe sepsis with septic shock; E43 Unspecified severe protein-calorie malnutrition; D84.9 Immunodeficiency, unspecified; J96.02 Acute respiratory failure with hypercapnia; J96.01 Acute respiratory failure with hypoxia; J91.8 Pleural effusion in other conditions classified elsewhere; I50.21 Acute systolic (congestive) heart failure; G92 Toxic encephalopathy; L02.211 Cutaneous abscess of abdominal wall; D62 Acute posthemorrhagic anemia; J44.0 Chronic obstructive pulmonary disease with (acute) lower respiratory infection; J44.1 Chronic obstructive pulmonary disease with (acute) exacerbation; D59.1 Other autoimmune hemolytic anemias; N39.0 Urinary tract infection, site not specified; E87.1 Hypo-osmolality and hyponatremia; C85.90 Non-Hodgkin lymphoma, unspecified, unspecified site; F17.210 Nicotine dependence, cigarettes, uncomplicated; B95.62 Methicillin resistant Staphylococcus aureus infection as the cause of diseases classified elsewhere; B96.5 Pseudomonas (aeruginosa) (mallei) (pseudomallei) as the cause of diseases classified elsewhere; E11.65 Type 2 diabetes mellitus with hyperglycemia; Z79.4 Long term (current) use of insulin; I11.0 Hypertensive heart disease with heart failure; E87.6 Hypokalemia; E83.42 Hypomagnesemia; I48.0 Paroxysmal atrial fibrillation; K74.60 Unspecified cirrhosis of liver; E83.39 Other disorders of phosphorus metabolism; Z68.35 Body mass index [BMI] 35.0-35.9, adult; E66.01 Morbid (severe) obesity due to excess calories; M32.9 Systemic lupus erythematosus, unspecified; M19.90 Unspecified osteoarthritis, unspecified site; E78.5 Hyperlipidemia, unspecified; Z96.651 Presence of right artificial knee joint; R41.0 Disorientation, unspecified; Z88.2 Allergy status to sulfonamides; Z85.42 Personal history of malignant neoplasm of other parts of uterus; Z85.828 Personal history of other malignant neoplasm of skin; Z90.710 Acquired absence of both cervix and uterus; Z90.81 Acquired absence of spleen; Z90.49 Acquired absence of other specified parts of digestive tract; Z82.49 Family history of ischemic heart disease and other diseases of the circulatory system; Z80.3 Family history of malignant neoplasm of breast; Z92.3 Personal history of irradiation
CPT/HCPCS: 36600; 70450; 71010; 71260; 74176; 74177; 80048; 80053; 80061; 80200; 80202; 81003; 82140; 82150; 82308; 82533; 82550; 82553; 82570; 82607; 82728; 82803; 82947; 83540; 83550; 83605; 83615; 83735; 83880; 83986; 84100; 84132; 84133; 84157; 84300; 84443; 84484; 85025; 85027; 85610; 85730; 87040; 87070; 87077; 87086; 87088; 87186; 87205; 87493; 87651; 88108; 88305; 89051; 89190; 92526; 92610; 93005; 93306; 94660; 94760; 94761; 96360; 97110; 97162; 97165; 97168; 97530; 97535; 99285; G8978-GP; G8979-GP; G8987-GO; G8988-GO; G8996-GN; G8997-GN; J0282; J0695; J0770; J1450; J1650; J1815; J1940; J2020; J2185; J2370; J2405; J2543; J3260; J3370; J3475; J3480; P9047; Q9967

== ENCOUNTER 2016-08-16 07:36 | Inpatient (IN) | payer OTHER ==
--- NOTE | ~2016-08-16 | CR72 ---
[facility] A Service of [facility] RADIOLOGY TEXT RESULTS PATIENT: LENKA HERNÁNDEZ LOCATION: [facility] : 42 UNIT #: [id number] AGE: [address]: YURIDIA ROBERTS MD SEX: F ORDER DR: [id number] [facility] [address] [facility]. [place], [place] [address] [id number] E MR#: [id number] Acc #: [id number] NAME: LENKA HERNÁNDEZ : 1940 SEX: F STUDY DATE/TIME: 08/16/2016 8:15 UNIT: [facility] ROOM: STUDY DESCRIPTION: CR Chest Single View Portable Attending Physician: Tuan Lira M.D. Ordering Physician: Tuan Lira M.D. Primary Care Physician: Octavio Cedeño M.D. MEDICAL IMAGING REPORT This report is preliminary unless electronic signature is present EXAM Portable chest. HISTORY Shortness of breath, onset today. Diabetes and hypotension. TECHNIQUE Single view of the chest was obtained and compared with 08/06/16 FINDINGS Single view of the chest shows enlargement of the cardiac silhouette since the previous examination with widening of the vascular pedicle and mediastinum and increased pulmonary vascularity. This is accompanied by bilateral pleural effusions that are larger than on the previous examination. Findings suggest either fluid overload or acute congestive heart failure. No new focal infiltrates are seen. IMPRESSION Increased pulmonary vascular congestion with enlarged effusions and enlargement of the cardiac silhouette since the previous examination. Findings consistent with acute congestive heart failure or fluid overload and show worsening since the previous exam. Dictated by... Romario Giron M.D. THIS IS AN ELECTRONICALLY VERIFIED REPORT Romario Giron M.D. at 08/16/2016 4:33 PM RLF/jazzmine TD: 08/16/2016 11:58 JOB #: [id number] [facility] A Service of [facility] RADIOLOGY TEXT RESULTS PATIENT: LENKA HERNÁNDEZ LOCATION: [facility] [address] : 42 UNIT #: [id number] AGE: [address]: YURIDIA ROBERTS MD SEX: F ORDER DR: MEDICAL IMAGING REPORT Page 1 of 1 COPY
--- NOTE | ~2016-08-16 | CR72 ---
[facility] A Service of [facility] RADIOLOGY TEXT RESULTS PATIENT: LENKA HERNÁNDEZ LOCATION: [address] : [birth year] UNIT #: [id number] AGE: [address]: Octavio Cedeño MD SEX: F ORDER DR: [id number] [place] [facility] [address] [place], [place] [address] [id number] I MR#: [id number] Acc #: [id number] NAME: LENKA HERNÁNDEZ : 1940 SEX: F STUDY DATE/TIME: 08/17/2016 8:29 UNIT: [facility] ROOM: [facility] STUDY DESCRIPTION: CR Chest Single View Portable Attending Physician: Octavio Cedeño M.D. Ordering Physician: Felice Barlow M.D. Primary Care Physician: Octavio Cedeño M.D. MEDICAL IMAGING REPORT This report is preliminary unless electronic signature is present EXAM Portable chest. HISTORY Shortness of breath, onset yesterday with a history of congestive heart failure. TECHNIQUE Single view of the chest was obtained and compared with 08/16/16. FINDINGS The heart and mediastinum are stable. Bilateral effusions are unchanged. Pulmonary vascular markings are prominent. This is unchanged from the previous exam. There is increased density in the right suprahilar area compared to the previous examination. I favor atelectasis over pneumonia. The right apex remains clear. IMPRESSION Moderate congestive heart failure is unchanged. There is increased right suprahilar focal infiltrate since the previous examination that could potentially represent atelectasis, perhaps from mucous plugging. This is the only area of worsening noted since the previous exam. STAT * RESULT Dictated by... Romario Giron M.D. THIS IS AN ELECTRONICALLY VERIFIED REPORT Romario Giron M.D. at 08/17/2016 3:45 PM RLF/bd [facility] A Service of [facility] RADIOLOGY TEXT RESULTS PATIENT: LENKA HERNÁNDEZ LOCATION: CIC3 CICCU3-23 : [birth year] UNIT #: [id number] AGE: [address]: Octavio Cedeño MD SEX: F ORDER DR: TD: 08/17/2016 08:49 JOB #: [id number] MEDICAL IMAGING REPORT Page 1 of 1 COPY
--- NOTE | ~2016-08-16 | CR72 ---
[facility] A Service of [facility] RADIOLOGY TEXT RESULTS PATIENT: LENKA HERNÁNDEZ LOCATION: [address]07 : [birth year] UNIT #: [id number] AGE: [address]: Octavoi Cedeño MD SEX: F ORDER DR: [id number] [facility] [address]. [place], [place] [address] [id number] I MR#: [id number] Acc #: [id number] NAME: LENKA HERNÁNDEZ : 1940 SEX: F STUDY DATE/TIME: 08/17/2016 13:42 UNIT: [facility] ROOM: [facility] STUDY DESCRIPTION: CR Chest Single View Portable Attending Physician: Octavio Cedeño M.D. Ordering Physician: Octavio Cedeño M.D. Primary Care Physician: Octavio Cedeño M.D. MEDICAL IMAGING REPORT This report is preliminary unless electronic signature is present EXAM Portable chest. HISTORY Patient desaturating. Concern for aspiration pneumonitis. Onset of desaturation today. TECHNIQUE A single AP view of the chest was obtained. FINDINGS Bilateral pleural effusions and basilar infiltrates are unchanged. Increased density in the right suprahilar region seen on the previous examination earlier today is less prominent on the current study. No new infiltrates are seen. Vascular markings are mildly prominent with redistribution toward the upper lung hopson. This is perhaps slightly increased from the previous exam. IMPRESSION 1. Mild pulmonary vascular redistribution a little more prominent than on the previous exam earlier today. This could be secondary to patient positioning. 2. Bilateral pleural effusions with basilar infiltrates are unchanged. 3. The more focal right suprahilar infiltrate seen on the exam earlier today shows improvement on the current study. Dictated by... Romario Giron M.D. THIS IS AN ELECTRONICALLY VERIFIED REPORT Romario Giron M.D. at 08/17/2016 4:37 PM [facility] A Service [facility] RADIOLOGY TEXT RESULTS PATIENT: LENKA HERNÁNDEZ LOCATION: CICCU3 CICCU3-23 : 44 UNIT #: [id number] AGE: [address]: Octavio Cedeño MD SEX: F ORDER DR: LORNA/delonte TD: 08/17/2016 16:34 JOB #: [id number] MEDICAL IMAGING REPORT Page 1 of 1 COPY
--- NOTE | ~2016-08-16 | EKG ---
PATIENT: LENKA HERNÁNDEZ UNIT #: [id number] Ventricular Rate: 65 BPM Atrial Rate: 65 BPM P-R Interval: 170 ms QRS Duration: 92 ms Q-T Interval: 446 ms QTC Calculation(Bezet): 463 ms P [place]: 55 degrees Calculated R [place]: 51 degrees Calculated T [place]: 57 degrees Diagnosis Line: Normal sinus rhythm Diagnosis Line: Low voltage QRS Diagnosis Line: Nonspecific T wave abnormality Diagnosis Line: Prolonged QT Diagnosis Line: Abnormal ECG Diagnosis Line: When compared with ECG of 04-AUG-2016 06:46, Diagnosis Line: Premature atrial complexes are no longer Present Diagnosis Line: Confirmed by FRANKLYN DUNCAN MD ([id number]) on Diagnosis Line: 08/18/2016 9:53:32 AM INTERPRETING MD: ETHAN
--- NOTE | ~2016-08-16 | CO ---
Unit #: [id number] #: [id number] Patient: LENKA HERNÁNDEZ [id number] [address] [place], [place] [address] [id number] MR#: [id number] NAME: LENKA HERNÁNDEZ ROOM: [facility] Age: 76 Sex: F Admission Date: 08/16/2016 : 1940 Attending Physician: Octavio Cedeño M.D. Primary Care Physician: Octavio Cedeño M.D. Consultation Date: 08/16/2016 CONSULTATION REPORT REASON FOR CONSULTATION Acute kidney injury. HISTORY OF PRESENT ILLNESS Ms. Hernández is a currently confused 76-year-old white female with multiple underlying medical problems. She actually just got discharged out of this hospital a week or so ago for complications from lymphoma and infection. At that time, she had developed acute kidney injury thought to be related to IV contrast dye and colistin exposure. The patient's ATN seem to stabilize before discharge. She re-presented with confusion and shortness of breath and has been found to be in pulmonary edema at this time. The patient is now on BiPAP and did receive some Lasix with good response thus far. The patient is confused and difficult to get a history from. I did discuss the patient's care with her 2 children that are present. The patient's blood pressure has stabilized. She tells me that she is breathing little bit better with the BiPAP. She does have significant swelling. There is no hematuria. PAST MEDICAL HISTORY Significant for acute kidney injury, non-Hodgkin lymphoma, congestive heart failure with an ejection fraction of 35%, anemia with a history of GI bleed, cirrhosis, lupus, diabetes, atrial fibrillation, previous sepsis with MRSA and Pseudomonas infection, abdominal wounds. PAST SURGICAL HISTORY She has had partial gastrectomy, partial pancreatectomy, and splenectomy for the lymphoma, hysterectomy, knee surgery, melanoma surgery, appendectomy, and cholecystectomy as well. MEDICATIONS Rehab medications were as follows; midodrine 5 mg every 8 hours, polyethylene glycol daily, sodium bicarbonate 650 mg a day, amiodarone 200 mg a day, multivitamin daily, Combivent inhaler, Lopressor 12.5 mg every 12 hours, Phenergan p.r.n., Zofran p.r.n., Jesse p.r.n., and sliding scale insulin. ALLERGIES She has no known drug allergies. FAMILY HISTORY Noncontributory to the current issues. SOCIAL HISTORY She is a former smoker. No alcohol or drug abuse. She was residing at Unit #: [id number] #: [id number] Patient: LENKA HERNÁNDEZ before coming in. REVIEW OF SYSTEMS A complete 12-point review of systems was attempted, but made difficult secondary to her confusion and being on the BiPAP. She has had low body temperatures here. She has not complained of any pain. There have been no reports of vomiting. No reports of bloody stool in her ostomy. No rashes or itching. No hematuria. Again, breathing seems to be doing a little bit better on BiPAP. Unless otherwise indicated, the review of systems was simply unable to be obtained. PHYSICAL EXAMINATION VITAL SIGNS: Temperature 94.6, pulse 65, respiratory rate 18, and blood pressure 134/59. Blood pressure was as low as 80/41. GENERAL: This is a 76-year-old frail female on BiPAP, who is arousable in no acute distress at this time. HEENT: Head is atraumatic and normocephalic. Eyes show pale conjunctivae with no scleral icterus. No nasal drainage or nosebleed. Oropharynx is dry. NECK: Shows no rigidity. HEART: Regular rate and rhythm with no significant murmur heard. No rub. LUNGS: Have scattered rhonchi present with the BiPAP machine as well as scattered rales. Breathing is mildly labored on BiPAP. ABDOMEN: Soft and postop with wound dressing in place, ostomy in place with nonbloody stool, and a G-tube in place. EXTREMITIES: There is no lower extremity clubbing or cyanosis. She has 2+ pitting edema below the knees bilaterally. SKIN: Dry without rashes. GENITOURINARY: Rowley catheter is in place with nonbloody urine. MUSCULOSKELETAL: No joint effusions noted. NEUROLOGIC: Noteworthy for generalized weakness, but no gross motor deficits. PSYCHIATRIC: Difficult to assess, but no anxiety noted. DIAGNOSTIC STUDIES LABORATORY RESULTS: BNP today was 752. Lactic acid 1.1. ABG showed a pH of 7.14, pCO2 49, pO2 76, bicarb of 17. Urinalysis did show 2+ protein and 1+ blood, but only 0 to 2 red blood cells per high-powered field. Culture is pending. Ammonia was 30. CBC noteworthy for hemoglobin of 7.8, white count was normal at 6.7. Chemistry earlier today showed a sodium of 132, potassium 4.6, chloride 108, bicarb 17 for an anion gap of 7, glucose 111, BUN 36, creatinine up to 3.6, albumin just 2.2, phosphorus high at 6.5. Magnesium level was 2. INR 1.2. On 08/15/2016, creatinine was 3.7. Overall, it looks like the creatinine has risen since a discharge creatinine of 2.7 on 08/09/2016. IMAGING STUDIES: Chest x-ray showed pulmonary edema with effusions. ASSESSMENT AND PLAN 1. Acute kidney injury. The patient has never recovered fully from her acute tubular necrosis from contrast dye and colistin, in fact it is worse now. This may be related to hypotension. No acute indication for dialysis, but certainly acidosis bears watching. We will place her on a Bumex drip for diuresis. I had a long talk with the patient's family including her son, Andi and her daughter, Lisette this afternoon. The patient is a very poor candidate for dialysis and I would recommend that it not be considered with her current illnesses including lymphoma and overall clinical picture. They agree that she is a poor dialysis Unit #: [id number] #: [id number] Patient: LENKA HERNÁNDEZ candidate and said they would likely decide not to do dialysis if they gets to that point. We will see how her numbers look in the morning and go from there. 2. Congestive heart failure, which is systolic in nature. I will place her on a Bumex drip. She also has some pressors ordered as needed for hypotension. 3. Metabolic acidosis. The patient did have some bicarbonate that was given by Dr. Barlow. Loop diuretic should assist as well. She also has a respiratory acidosis, which hopefully will be improved with the BiPAP. 4. Hyperphosphatemia. This is due to her renal insufficiency and we will not place her on a binder just yet with all of her recent GI surgeries. 5. Anemia with history of gastrointestinal bleed. We will transfuse as needed. 6. Lymphoma. The patient is currently not a candidate for any chemotherapy. 7. Underlying cirrhosis. 8. History of lupus. 9. History of diabetes. 10. History of atrial fibrillation, now in sinus. 11. History of Methicillin-resistant Staphylococcus aureus and Pseudomonas sepsis and infection. 12. Overall prognosis is very poor and I did explain this to the children. I would like to thank Dr. Barlow for this consult and the opportunity to participate in evaluation and care of Ms. Hernández. Dictated by... Austin Dey Jr., MKevin. JOHN/christine TD: 08/17/2016 06:48 JOB #: [id number] CONSULTATION REPORT Page 1 of 1 X Austin Dey MD X CONSULTATION REPORT
--- NOTE | ~2016-08-16 | A ---
[facility] DATE: 08/17/16 Patient: LENKA HERNÁNDEZ Physician: POPEYE Address: [address] [place] [address] Room/Bed: [address], Zip: [place] [address] Admit Date: 08/16/16 Date of : 42 Height: 5 3 Weight: 221 100.5 NUTRITIONAL ASSESSMENT: REASON: Enteral nutrition recommendations Admitting dx: 76 y/o female admitted with AMS from SNU, found to have NORA on CKD and acute CHF PMH: Cirrhosis, GIB, HLD, anemia, abdominal sx with abscesses 1 month ago, DM, Lupus, non-Hodgkin's Lymphoma Anthropometrics: Ht: 63", Wt: 100.5 kg, BMI: 39 (Stage II obese) Weight ranges in 2017: 94.5-105.5 kg Labs: Glucose WNL, POC 86-103, BUN 36, Creat 3.4, Phos 6.5 (08/16), GFR 12.6, Na/K/Mg WNL Meds: IV Bumex, IV Dobutamine, Na bicarb, Novolog (low SSI), Miralax, Phenergan/Zofran prn, MVI with minerals I/O & Bowel function: Last BM unknown, PEG tube unusable Skin Integrity: Healed pressure ulcer/discoloration coccyx, redness abdominal folds/breast, open abdominal wound with drain Edema: generalized BLE/abdomen, 2+ pedal Estimated Nutrition Needs: 3915-0912 kcals per day (17-22 kcals/kg ABW) 101-141 g protein per day (1.2-1.4 g/kg ABW) Fluids consistent with kcal needs or per MD Assessment: Chart reviewed, events noted. See admitting dx and PMH as stated above. Patient recently dishcharged from this facility and sent to SNU. Had prior abdominal surgery of unknown details at [facility] 1 month ago and has had extensive recovery time/complications. She is on continuous Bipap at this time, currently NPO. Nursing states she is having dysphagia even with liquids and is not appropriate for PO diet. AMS remains at this time however she is able to make her needs known. She is not appropriate for RD interview, but we have previously assessed her (past notes reviewed). Apparently her PEG tube has not been in use due to infection, unsure positioning. Per MD going to place DHT and start enteral nutrition. See recs below, will follow. Dx: Inadequate energy intake r/t clinical condition AEB NPO, need for enteral nutrition. [facility] DATE: 08/17/16 Patient: LENKA HERNÁNDEZ Physician: POPEYE Address: [address] [place] [address] Room/Bed: [address], Zip: [place] [address] Admit Date: 08/16/16 Date of : [birth year] Height: 5 3 Weight: 221 100.5 Intervention: EN recs as stated below Monitoring, Evaluation and Goals: 1. EN consistent with estimated nutrition needs. 2. Promote wound healing. 3. Improvement in labs. 4. Promote regular BM's. Monitor: Per protocol, criteria to determine if above goals met Recommendations: 1. Once medically feasible place DHT and start enteral nutrition with Vital 1.5 @ 10 ml/hr and order 30 ml Prostat BID. Increase by 10 ml q 8 hours until goal rate of 55 ml/hr is reached and continue Prostat. This will provide 2180 kcals, 118 g protein and 1003 ml water (100% of estimated nutrition needs). Free water flushes once at goal rate per MD noting NORA and fluid overload. 2. Once appropriate suggest [employer] OF [employer] MARKETING eval to determine safety of PO diet. Advance diet once able per their recs with no other dietary restrictions. 3. Suggest checking A1C level. Check Phos daily. 4. Wound care prn. Continue daily MVI with minerals. Will follow hospital course Moderate-severe nutrition risk Respectfully, Elvie Patrick, LOREN, LD [facility] cc: client file
--- NOTE | ~2016-08-16 | CT71 ---
[facility] A Service of [facility] RADIOLOGY TEXT RESULTS PATIENT: LENKA HERNÁNDEZ LOCATION: [facility] [id number] : 42 UNIT #: [id number] AGE: [address]: YURIDIA CHAN MD SEX: F ORDER DR: [id number] [facility] [address] [facility]. [place], [place] [address] [id number] I MR#: [id number] Acc #: [id number] NAME: LENKA HERNÁNDEZ : 1940 SEX: F STUDY DATE/TIME: 08/16/2016 12:18 UNIT: CED ROOM: [id number] STUDY DESCRIPTION: CT Head Wo Contrast Attending Physician: Yuridia Chan M.D. Ordering Physician: Tuan Lira M.D. Primary Care Physician: Octavio Cedeño M.D. MEDICAL IMAGING REPORT This report is preliminary unless electronic signature is present EXAM Head CT without contrast HISTORY Mental status changes today with disorientation. Recent discharge from the Hospital 08/09/2016 TECHNIQUE Axial images were obtained without contrast and compared with 08/06/2016. This CT exam was performed with one or more of the following radiation dose reduction techniques: automatic control, adjustment of mA and/or kV according to patient size, and iterative reconstruction. FINDINGS Generalized atrophy is seen with mild to moderate chronic ischemic changes noted around the ventricles. This is unchanged. There is no evidence of mass lesion, hemorrhage or edema. No midline shift is noted. Extraaxial structures are unremarkable. IMPRESSION Atrophy with chronic ischemic changes. No change from the previous scan. Dictated by... Romario Giron M.D. THIS IS AN ELECTRONICALLY VERIFIED REPORT Romario Giron M.D. at 08/16/2016 4:33 PM RLF/rnr TD: 08/16/2016 15:28 JOB #: [id number] MEDICAL IMAGING REPORT [facility] A Service [facility] RADIOLOGY TEXT RESULTS PATIENT: LENKA HERNÁNDEZ LOCATION: [facility] [id number] : 42 UNIT #: [id number] AGE: [address]: YURIDIA CHAN MD SEX: F ORDER DR: Page 1 of 1 COPY
--- NOTE | ~2016-08-16 | HP ---
Unit #: [id number] #: [id number] Patient: LENKA HERNÁNDEZ [id number] [address] [place], [place] [address] [id number] MR#: [id number] NAME: LENKA HERNÁNDEZ ROOM: Age: 76 Sex: F Admission Date: 08/16/2016 : 1940 Attending Physician: Tuan Lira M.D. Primary Care Physician: Octavio Cedeño M.D. HISTORY AND PHYSICAL CHIEF COMPLAINT Altered mental status. HISTORY OF PRESENT ILLNESS The patient is a 76-year-old female with history of cirrhosis, autoimmune hemolytic anemia, diabetes, lupus, uterine cancer with previous hysterectomy, skin cancer with excisions, arthritis. Was recently discharged from the hospital after prolonged stay with sepsis, acute respiratory failure with MRSA pneumonia, MRSA abdominal abscess, MDR Pseudomonas abdominal abscess, bacteremia and acute kidney injury to [facility]. The patient was brought from [facility] with altered mental status and respiratory distress. The patient is on BiPAP and is unable to provide any history. The history is obtained by speaking with the patient's family at the bedside. The patient was having swelling of the legs for the last few days, and this morning the patient was hard to wake up and was found to be in respiratory distress satting 97% on 3 liters, respiratory rate 30. The patient had a chest x-ray that showed increased pulmonary vascular congestion with enlarged effusions and enlargement of the cardiac silhouette since the previous examination. Findings consistent with acute congestive heart failure or fluid overload. The ABGs showed pH of 7.1, pCO2 of 49, pO2 of 76, bicarb 17. The patient is being admitted for the above reasons. PAST MEDICAL HISTORY 1. History of cirrhosis with recent liver biopsy. 2. History of non-Hodgkin lymphoma recently diagnosed. 3. Autoimmune hemolytic anemia. 4. Diabetes. 5. Dyslipidemia. 6. Lupus. 7. History of uterine cancer. 8. Skin cancer. 9. Recent GI bleed. SURGICAL HISTORY 1. History of right total knee arthroplasty. 2. Hysterectomy. 3. Melanoma excision. 4. History of ventral/incisional hernia. HOME MEDICATIONS She is on Metoprolol, promethazine, Zofran, [place], DuoNeb, NovoLog, midodrine, polyethylene glycol, sodium bicarbonate, amiodarone, multivitamin. Unit #: [id number] #: [id number] Patient: LENKA HERNÁNDEZ SOCIAL HISTORY She used to smoke 1-1/2 packs to 2 packs daily for many years. She just quit recently, 2 months ago, during the hospitalization. She denies alcohol or any illicit drug abuse. FAMILY HISTORY Reviewed and none. REVIEW OF SYSTEMS A 14-point review of systems was performed, and all the pertinent positive findings are as described above. The remaining are negative. PHYSICAL EXAMINATION GENERAL: The patient is lying in the bed, not in acute distress. VITALS: Temp of 97.5, pulse 66, respiratory rate 24, blood pressure 99/79, satting 97% on 3 liters nasal cannula. HEENT: Head atraumatic, normocephalic. Pupils are equal, round, reactive to light and accommodation. NECK: Supple. LUNGS: Decreased air entry at the bases. Positive for rales. HEART: Regular rate and rhythm. Rate of 64 beats per minute. Positive for murmur. ABDOMEN: Soft. Positive bowel sounds. Positive G-tube and dressing around the wound. EXTREMITIES: Positive for +1 to +2 pedal edema. NEUROLOGIC: Alert, awake, oriented. DIAGNOSTIC STUDIES IMAGING: Chest x-ray shows increased pulmonary vascular congestion with enlarged effusions and enlargement of the cardiac silhouette since the previous examination. Findings consistent with acute congestive heart failure or fluid overload and show worsening since the previous exam. LAB DATA: ABGs show pH 7.14, pCO2 of 49, pO2 76, bicarb 17, saturation 93. UA shows trace leukocyte esterase, 2+ protein, 500 glucose, 1+ blood. Ammonia level is 30. WBC 6.7, hemoglobin 7.8, hematocrit 25.3, platelets 215. Sodium 132, potassium 4.6, chloride 108, glucose 111, BUN 36, creatinine 3.6, albumin 2.2, phosphorous 6.5, lipase 18, lactic acid 1. INR 1.2. Troponin less than 0.05. CARDIOVASCULAR: The EKG shows normal sinus rhythm with a rate of 65 beats per minute and nonspecific T waves, prolonged QTc. ASSESSMENT 1. Acute systolic CHF. 2. Acute kidney injury on chronic kidney disease. 3. Respiratory failure. PLAN Plan to admit the patient to ICU and continue with BiPAP. Will have cardiology and nephrology consult. Patient has been seen by critical care and continued with wean of the BiPAP. Might need thoracentesis as needed in the past. Check the BNP and echocardiogram if it is not done. Further recommendations will follow. Unit #: [id number] #: [id number] Patient: LENKA HERNÁNDEZ Dictated by Ashley Burnett/john TD: 08/16/2016 14:24 JOB #: [id number] HISTORY AND PHYSICAL Page 1 of 1 X YURIDIA ROBERTS MD X HISTORY AND PHYSICAL
[~2016-08-16 07:36] MED LIST: CIPRO250 M1 PO; FENOFIBRATE160 MG PO; FLAGYL PO; FUROSEMIDE40 MG PO; HYDROCODON-ACE1 EAC7 PO; LANTUS100 U/ML SUBQ; MELATONIN5 M1 PO; MIDODRINE HCL2.5 MG PO; MILK OF MAGNESIA PO; NOVOLOG100 U/ML; ONDANSETRON HCL8 MG PO; ONE DAILY MULT1 EAC2 PO; PHENERGAN25 M1 PO; POLYETHYLENE GL17 GM PO; TUSSIN DM SYRU118 ML PO; [UNRECOGNIZED DRUG - REMARK] TOP
[2016-08-16 08:26] LABS: POC - CKMB 3.1 ng/mL (0.0-7.9); POC - TROPONIN <0.05 ng/mL (<=0.05)
[2016-08-16 08:26] LABS: BASOPHIL# 0.1 X10e3 (0-0.3); EOSINOPHIL# 0.1 X10e3 (0-0.7); EOSINOPHIL% 0.8 % (0.0-7.0); HEMATOCRIT 25.3 % (35.0-45.0); HEMOGLOBIN 7.8 gm/dL (12.0-16.0); LYMPHOCYTE% 14.9 % (17.0-45.0); MEAN CELL VOLUME 90.2 FL (83-96); MEAN CORPUSCULAR HEMOGLOBIN 27.7 PG (28-34); MEAN CORPUSCULAR HGB CONC 30.7 g/dL (30-36); MEAN PLATELET VOLUME 9.9 FL (6.5-11.5); MONOCYTE# 0.5 X10e3 (0-1.0); NEUTROPHIL# 5.1 X10e3 (1.5-7.1); NEUTROPHIL% 75.3 % (40-75); RED BLOOD COUNT 2.81 X10e (3.90-5.30); RED CELL DISTRIBUTION WIDTH 18.2 % (11.0-15.5); WHITE BLOOD COUNT 6.7 X10e3 (4.0-10.5)
[2016-08-16 08:33] LABS: ARTERIAL BLOOD GAS ALLEN TEST POS; ARTERIAL BLOOD GAS ART SITE LEFT RADIAL; ARTERIAL BLOOD GAS CARBOXY HB 0.8 %sat (0.0-9.0); ARTERIAL BLOOD GAS HCO3 16.5 mmol/L; ARTERIAL BLOOD GAS MET HB 1.2 %sat (0.0-2.0); ARTERIAL DRAW? YES
[2016-08-16 08:34] LABS: ARTERIAL BLOOD GAS DELIVERY NASAL CANNULA
[2016-08-16 08:37] LABS: INR 1.2; PARTIAL THROMBOPLASTIN TIME 39.5 SECONDS (23.5-31.3); PROTHROMBIN TIME (PATIENT) 13.1 SECONDS (9.6-11.5)
[2016-08-16 08:49] LABS: ALBUMIN SERUM 2.2 g/dL (3.5-5.0); BILIRUBIN, DIRECT 0.2 mg/dL (0.0-0.2); BILIRUBIN,INDIRECT 0.6 mg/dL (0.0-0.9); BILIRUBIN,TOTAL 0.8 mg/dL (0.2-2.0); CALCIUM SERUM 8.5 mg/dL (8.4-10.2); CREATININE SERUM 3.6 mg/dL (0.6-1.4); GLOM FILT RATE Estimated 11.8 mL/min (>60); PHOSPHOROUS 6.5 mg/dL (2.5-4.6); POTASSIUM 4.6 mmol/L (3.5-5.1); PROTEIN TOTAL SERUM 6.1 g/dL (6.0-8.3)
[2016-08-16 09:07] LABS: PLATELET COUNT 215 X10e3 (140-420)
[2016-08-16 09:08] LABS: DIFF IND YES
[2016-08-16 09:09] LABS: PLATELET ESTIMATE NORMAL (NORMAL)
[2016-08-16 09:10] LABS: ANISOCYTOSIS MOD; OVALOCYTES PRESENT; POIKILOCYTOSIS SL; SCHISTOCYTES PRESENT
[2016-08-16 09:11] LABS: ACANTHOCYTES PRESENT
[2016-08-16 10:26] LABS: URINE SOURCE CATH
[2016-08-16 10:35] LABS: URINE APPEARANCE CLEAR; URINE BILIRUBIN NEG (NEG); URINE BLOOD 1+ (NEG); URINE COLOR YELLOW; URINE GLUCOSE 500 MG/DL (NEG); URINE KETONE NEG (NEG); URINE LEUKOCYTE ESTERASE TRACE (NEG); URINE NITRATE NEG (NEG); URINE PROTEIN 2+ (NEG); URINE SPECIFIC GRAVITY 1.009 (1.003-1.035); URINE UROBILINOGEN 0.2 MG/DL (NEG)
[2016-08-16 10:38] LABS: CULTURE INDICATED? YES; URINE BACTERIA AUWI NEG (NEGATIVE); URINE SQUAMOUS EPITHELIAL CELL OCC /[HPF]
[2016-08-16 10:52] LABS: URBCS1 AUWI 0-2 /[HPF] (0-2)
[2016-08-16 10:58] LABS: ARTERIAL BLOOD GAS ALLEN TEST POS; ARTERIAL BLOOD GAS ART SITE LEFT RADIAL; ARTERIAL BLOOD GAS MET HB 0.9 %sat (0.0-2.0); ARTERIAL DRAW? YES
[2016-08-16] MEDS ORDERED: PRO-AMATINE5 M1 PO (13:26)
[2016-08-16] MEDS ORDERED: GAVILAX17 GM PO (13:27)
[2016-08-16] MEDS ORDERED: MULTIVITAMINS1 EAC3 PO (13:28)
[2016-08-16] MEDS ORDERED: AMIODARONE HCL200 MG PO (13:28)
[2016-08-16] MEDS ORDERED: ANTACID650 MG PO (13:28)
[2016-08-16] MEDS ORDERED: IPRAT-ALBUT 0.5-3 ML NEB ×2 (13:29→13:32)
[2016-08-16] MEDS ORDERED: LOPRESSOR PO (13:30)
[2016-08-16] MEDS ORDERED: HYDROCODON-ACE1 EAC7 PO (13:30)
[2016-08-16] MEDS ORDERED: PHENERGAN PO (13:30)
[2016-08-16] MEDS ORDERED: ZOFRAN PO (13:30)
[2016-08-16] MEDS ORDERED: NOVOLOG100 U/ML (13:33)
[2016-08-16] MEDS ORDERED: CHLORASEPTIC177 M1 PO (13:33)
[2016-08-17 04:35] LABS: ARTERIAL BLD GAS O2 SATURATION 94.7 % (90.0-100.0); ARTERIAL BLOOD GAS ALLEN TEST NORMAL; ARTERIAL BLOOD GAS ART SITE RIGHT RADIAL; ARTERIAL BLOOD GAS CARBOXY HB 0.6 %sat (0.0-9.0); ARTERIAL BLOOD GAS PCO2 45.6 mmHg (35.0-45.0); ARTERIAL BLOOD GAS PO2 76.3 mmHg (80.0-100); ARTERIAL BLOOD GAS pH 7.291 (7.350-7.450); ARTERIAL DRAW? YES
[2016-08-17 05:48] LABS: HEMATOCRIT 23.7 % (35.0-45.0); HEMOGLOBIN 7.5 gm/dL (12.0-16.0); MEAN CORPUSCULAR HEMOGLOBIN 27.4 PG (28-34); MEAN CORPUSCULAR HGB CONC 31.5 g/dL (30-36); MEAN PLATELET VOLUME 9.6 FL (6.5-11.5); RED BLOOD COUNT 2.72 X10e (3.90-5.30); RED CELL DISTRIBUTION WIDTH 18.4 % (11.0-15.5); WHITE BLOOD COUNT 7.9 X10e3 (4.0-10.5)
[2016-08-17 05:49] LABS: MEAN CELL VOLUME 86.9 FL (83-96)
[2016-08-17 06:29] LABS: ALBUMIN SERUM 2.1 g/dL (3.5-5.0); BILIRUBIN,TOTAL 0.7 mg/dL (0.2-2.0); BUN/CREATININE RATIO 10.58; CALCIUM SERUM 8.2 mg/dL (8.4-10.2); CREATININE SERUM 3.4 mg/dL (0.6-1.4); GLOM FILT RATE Estimated 12.6 mL/min (>60); MAGNESIUM 1.9 mg/dL (1.6-3.0); POTASSIUM 3.5 mmol/L (3.5-5.1); PROTEIN TOTAL SERUM 5.3 g/dL (6.0-8.3)
[2016-08-17 15:07] LABS: ARTERIAL BLOOD GAS PCO2 63.5 mmHg (35.0-45.0); ARTERIAL BLOOD GAS pH 7.199 (7.350-7.450)
[2016-08-17 15:08] LABS: ARTERIAL BLD GAS O2 SATURATION 99.4 % (90.0-100.0); ARTERIAL BLOOD GAS CARBOXY HB 0.4 %sat (0.0-9.0); ARTERIAL BLOOD GAS HCO3 24.7 mmol/L
[2016-08-17 15:09] LABS: ARTERIAL BLOOD GAS ALLEN TEST NORMAL; ARTERIAL BLOOD GAS ART SITE RIGHT RADIAL; ARTERIAL BLOOD GAS DELIVERY BIPAP 14/5; ARTERIAL DRAW? YES
== END 2016-08-18 02:45 | disposition expired | DRG 291 ==
LOC: CED 07:36 → CEDOF 11:50 → CED 12:00 → CICCU3 21:56 → CEDOF 21:56 → CICCU3 08-17 07:20
PROVIDERS: Emergency Medicine; Internal Medicine
PROC: 0W9B3ZZ Drainage of Left Pleural Cavity, Percutaneous Approach (ICD-10-PCS; principal; 2016-08-17)
DX: I50.21 Acute systolic (congestive) heart failure (principal); N17.0 Acute kidney failure with tubular necrosis; J96.02 Acute respiratory failure with hypercapnia; J96.01 Acute respiratory failure with hypoxia; E87.2 Acidosis; C85.90 Non-Hodgkin lymphoma, unspecified, unspecified site; M32.9 Systemic lupus erythematosus, unspecified; E11.22 Type 2 diabetes mellitus with diabetic chronic kidney disease; I12.9 Hypertensive chronic kidney disease with stage 1 through stage 4 chronic kidney disease, or unspecified chronic kidney disease; N18.9 Chronic kidney disease, unspecified; G47.33 Obstructive sleep apnea (adult) (pediatric); K74.60 Unspecified cirrhosis of liver; I48.91 Unspecified atrial fibrillation; Z87.891 Personal history of nicotine dependence; E83.39 Other disorders of phosphorus metabolism; Z96.651 Presence of right artificial knee joint; D63.1 Anemia in chronic kidney disease; Z51.5 Encounter for palliative care
CPT/HCPCS: 36600; 51702; 70450; 71010; 80048; 80053; 80076; 81003; 82140; 82150; 82308; 82553; 82803; 82947; 83605; 83690; 83735; 83880; 84100; 84484; 85025; 85027; 85610; 85730; 87040; 87086; 93005; 94640; 94660; 94760; 96361; 96365; 99291; J1250; J1940; J2060; J2270